=== PATIENT | male | born 1980 | race Caucasian/White ===

== ENCOUNTER 2020-08-04 10:36 | Outpatient (REF) | payer OTHER, SELFPAY | END 2020-08-04 10:37 | disposition home or self-care (01) | LOC: HO.LAB 10:36 | PROVIDERS: PCP Physician Assistant; Visit Provider Internal Medicine | DX: Z20.828 Contact with and (suspected) exposure to other viral communicable diseases (principal) | CPT/HCPCS: 36415; 87635 ==

== ENCOUNTER 2020-10-10 10:22 | Outpatient (REF) | payer OTHER, SELFPAY ==
[2020-10-10 11:30] LABS: MANUAL DIFF FLAG NO
[2020-10-10 11:48] LABS: Basophils Absolute Auto 0.1 X10*3/uL (0.0-0.2); Basophils Percent Auto 0.7 % (0-2); Eosinophils Absolute Auto 0.2 X10*3/uL (0.0-0.4); Eosinophils Percent Auto 2.5 % (0-4); Hemoglobin 15.8 g/dl (14.0-18.0); Imm Gran Abs Auto 0.03 X10*3/uL (0.00-0.03); Imm Gran Pct Auto 0.4 % (0.0-0.4); Lymphocytes Absolute Auto 2.7 X10*3/uL (1.2-4.9); Lymphocytes Percent Auto 36.6 % (20-40); Mean Corpuscular HGB Conc 32.9 g/dl (31.0-36.0); Mean Corpuscular Hemoglobin 30.9 pg (27.0-33.0); Mean Corpuscular Volume 93.9 fL (80-98); Mean Platelet Volume 10.2 fL (9.4-12.4); Monocytes Absolute Auto 0.6 X10*3/uL (0.1-1.2); Monocytes Percent Auto 7.9 % (2-11); Neutrophils Absolute Auto 3.8 X10*3/uL (2.0-8.3); Neutrophils Percent Auto 51.9 % (45-73); Platelet Count 273 X10*3/uL (160-400); Red Blood Count 5.11 X10*6/uL (4.60-5.80); White Blood Count 7.3 X10*3/uL (4.8-10.8)
[2020-10-10 11:53] LABS: Alanine Aminotransferase 107 U/L (0-40); Albumin Level 4.7 g/dL (3.5-5.0); Alkaline Phosphatase 67 U/L (39-117); Anion Gap 12 (12-20); Aspartate Amino Transferase 44 U/L (5-37); Bilirubin Total 1.2 mg/dL (0.0-1.0); Blood Urea Nitrogen 14 mg/dL (9-16); Calcium 9.2 mg/dL (8.4-10.2); Carbon Dioxide 28 mmol/L (22-29); Chloride 105 mmol/L (96-108); Cholesterol 283 mg/dL; Estimated Glomerular Filt Rate > 60; Glucose Fasting 87 mg/dL (60-99); HDL Cholesterol 41 mg/dL; LDL Cholesterol Calculated 218 mg/dl; Sodium 141 mmol/L (135-145); Total Protein 7.5 g/dL (6.5-8.0); Triglycerides 124 mg/dL
[2020-10-10 11:56] LABS: Estimated Average Glucose 108 mg/dL; Hemoglobin A1c % 5.4 %
[2020-10-10 12:15] LABS: TSH reflex Free T4 1.27 mIU/mL (0.32-4.0)
== END 2020-10-10 10:23 | disposition home or self-care (01) ==
LOC: HO.LAB 10:22
PROVIDERS: Absent Provider Physician Assistant; PCP Physician Assistant; Visit Provider Internal Medicine
DX: Z20.828 Contact with and (suspected) exposure to other viral communicable diseases (principal); Z13.220 Encounter for screening for lipoid disorders; E66.09 Other obesity due to excess calories; Z68.33 Body mass index [BMI] 33.0-33.9, adult; Z13.1 Encounter for screening for diabetes mellitus
CPT/HCPCS: 36415; 80053; 80061; 83036; 84443; 85025; C9803; U0003

== ENCOUNTER → 2020-11-02 10:01 | Outpatient (BNVA) | payer OTHER, SELFPAY | PROVIDERS: PCP Physician Assistant; Referring Provider Physician Assistant; Visit Provider Urology | DX: Z76.89 Persons encountering health services in other specified circumstances (principal) ==

== ENCOUNTER → 2020-12-16 10:43 | Outpatient (BNVA) | payer OTHER, SELFPAY | PROVIDERS: PCP Physician Assistant; Visit Provider Urology | DX: Z30.2 Encounter for sterilization (principal) | CPT/HCPCS: 55250 ==

== ENCOUNTER 2021-01-09 08:48 | Outpatient (REF) | payer OTHER, SELFPAY | END 2021-01-09 08:49 | disposition home or self-care (01) | LOC: HO.LAB 08:48 | PROVIDERS: Visit Provider Internal Medicine | DX: Z20.822 Contact with and (suspected) exposure to COVID-19 (principal) | CPT/HCPCS: 36415; C9803; U0003; U0005 ==

== ENCOUNTER → 2021-03-16 15:17 | Outpatient (BNVA) | payer OTHER, SELFPAY | PROVIDERS: PCP Physician Assistant; Visit Provider Urology ==

== ENCOUNTER 2021-10-30 12:10 | Outpatient (REF) | payer OTHER, SELFPAY ==
--- NOTE | ~2021-10-30 | XR_ITS ---
EXAMINATION: XR HAND, RIGHT CLINICAL INFORMATION: Pain in right hand COMPARISON: None TECHNIQUE: PA, lateral, and oblique views of the right hand. FINDINGS: There is a mildly displaced comminuted fracture involving the base of the fourth metacarpal with suggestion of slight callus formation suggesting a subacute etiology. Correlation with physical exam. No acute visible dislocation. Joint spaces and alignment are maintained. Soft tissues are unremarkable. XR/XR hand RT 2V IMPRESSION: Mildly displaced comminuted fracture involving the base of the fourth metacarpal with suggestion of slight callus formation suggesting a subacute etiology. Correlation with physical exam and trauma history.
--- NOTE | ~2021-10-30 | US_ITS ---
EXAMINATION: US ABDOMEN LIMITED CLINICAL INFORMATION: Abnormal levels of other serum enzymes. COMPARISON: Ultrasound abdomen 09/24/2007. CT abdomen and pelvis 06/28/2007. TECHNIQUE: Real-time imaging of the right upper quadrant abdominal viscera. FINDINGS: PANCREAS: Not well visualized due to overlying bowel gas. LIVER: The liver is normal in size. The liver contour is normal. There is diffuse increased liver parenchymal echogenicity, consistent with hepatic steatosis. No focal hepatic lesion. There is no intrahepatic biliary duct dilatation seen. GALLBLADDER: Normal. The gallbladder is physiologically distended without evidence of stones, sludge, polyps, wall thickening or pericholecystic fluid. COMMON BILE DUCT: Normal in caliber measuring 0.4 cm in diameter. RIGHT KIDNEY: There is a 4 mm nonobstructing calculus in the upper pole. There is a 2.8 cm cyst in the midpole. No hydronephrosis. The kidney measures 12.6 cm in maximum dimension. FREE FLUID: None. US/US abdomen limited IMPRESSION: 1. Metastatic steatosis. 2. 4 mm right upper pole nonobstructing calculus. 3. Right upper floor renal cysts, no further follow-up is required.
[2021-10-30 12:55] LABS: Hematocrit 47.3 % (42.0-52.0); Hemoglobin 15.8 g/dl (14.0-18.0); Mean Corpuscular HGB Conc 33.4 g/dl (31.0-36.0); Mean Corpuscular Hemoglobin 31.2 pg (27.0-33.0); Mean Corpuscular Volume 93.3 fL (80.0-98.0); Mean Platelet Volume 9.9 fL (9.4-12.4); Platelet Count 297 X10*3/uL (160-400); Red Blood Count 5.07 X10*6/uL (4.60-5.80); Red Cell Distribution Width 13.2 % (11.0-16.0); White Blood Count 8.1 X10*3/uL (4.8-10.8)
[2021-10-30 13:04] LABS: Estimated Average Glucose 103 mg/dL; Hemoglobin A1c % 5.2 %
[2021-10-30 13:07] LABS: Alanine Aminotransferase 63 U/L (0-40); Albumin Level 4.6 g/dL (3.5-5.0); Alkaline Phosphatase 69 U/L (39-117); Anion Gap 11 (12-20); Aspartate Amino Transferase 28 U/L (5-37); Blood Urea Nitrogen 13 mg/dL (9-16); Carbon Dioxide 30 mmol/L (22-29); Chloride 105 mmol/L (96-108); Cholesterol 262 mg/dL; Estimated Glomerular Filt Rate > 60; Glucose Fasting 87 mg/dL (60-99); HDL Cholesterol 44 mg/dL; LDL Cholesterol Calculated 188 mg/dl; Potassium 4.4 mmol/L (3.3-5.1); Sodium 142 mmol/L (135-145); Total Protein 7.5 g/dL (6.5-8.0); Triglycerides 150 mg/dL
[2021-10-30 13:24] LABS: Syphilis Screen Nonreactive (Nonreactive)
[2021-10-30 13:26] LABS: TSH reflex Free T4 1.34 uIU/mL (0.32-4.0)
[2021-11-01 07:59] LABS: HBS Num1 > 1000.00 mIU/mL (0-7.99); HIV AB/AG Nonreactive (Nonreactive); HIV Num 1 0.06 S/CO (0.00-0.99); ~HepC Num1 0.09 S/CO (0.00-0.79); ~Hepatitis B Surface Antibody REACTIVE (Nonreactive); ~Hepatitis C Antibody Nonreactive (Nonreactive)
[2021-11-01 08:29] LABS: HBc Num1 0.05 S/CO (0.00-0.79); HBsAGNum1 0.18 S/CO (0.00-0.99); Hepatitis B Core Antibody Nonreactive (Nonreactive); Hepatitis B Surface Antigen Negative (Negative)
[2021-11-05 14:21] LABS: HSV 1 IgM IFA Negative (Negative); HSV 2 IgM IFA Negative (Negative)
[2021-11-05 16:05] LABS: Chlamydia Pneumoniae IgA <1:16 titer (<1:16); Chlamydia Pneumoniae IgM <1:10 titer (<1:10); Chlamydia Psittaci IgA <1:16 titer (<1:16); Chlamydia Psittaci IgG <1:64 titer (<1:64); Chlamydia Psittaci IgM <1:10 titer (<1:10); Chlamydia Trachomatis IgA <1:16 titer (<1:16); Chlamydia Trachomatis IgG <1:64 titer (<1:64); Chlamydia Trachomatis IgM <1:10 titer (<1:10)
== END 2021-10-30 12:11 | disposition home or self-care (01) ==
LOC: HO.US 12:10
PROVIDERS: PCP Physician Assistant; Visit Provider Physician Assistant
DX: Z11.4 Encounter for screening for human immunodeficiency virus [HIV] (principal); Z13.1 Encounter for screening for diabetes mellitus; Z11.3 Encounter for screening for infections with a predominantly sexual mode of transmission; R74.8 Abnormal levels of other serum enzymes; M79.641 Pain in right hand; E78.2 Mixed hyperlipidemia
CPT/HCPCS: 36415; 73120; 76705; 80053; 80061; 83036; 84443; 85027; 86631; 86632; 86695; 86696; 86704; 86706; 86780; 86803; 87340; 87389

== ENCOUNTER 2022-03-23 11:01 | Emergency (ER) | payer OTHER, SELFPAY ==
--- NOTE | ~2022-03-23 | CT_ITS ---
EXAMINATION: CT HEAD WITHOUT CONTRAST CLINICAL INFORMATION: Dizziness/headaches/high blood pressure. COMPARISON: None. TECHNIQUE: Contiguous axial imaging was performed from the skull base to vertex without intravenous administration of contrast. This CT examination was performed using dose optimization techniques as appropriate, variously including the following: *Automated exposure control *Adjustment of mA and/or kV according to patient size (this includes techniques or standardized protocols for targeted exams where dose is matched to indication/reason for exam; i.e. extremities or head) *Use of iterative reconstruction technique DLP: 674 mGy-cm. FINDINGS: There is no intracranial hemorrhage, large infarction, or mass lesion. There is no extra-axial collection. The ventricles are normal in size and configuration without evidence of hydrocephalus. Aerated secretions are seen within the left sphenoid sinus. The mastoids are clear. The calvarium is intact. CT/CT head/brain wo con IMPRESSION: No acute intracranial abnormality.
[2022-03-23 11:07] VITALS: BP 155/102; PULSE 63; RESP 16; TEMP 36.6; O2SAT 98; BMI 32.8
[2022-03-23 11:20] LABS: MANUAL DIFF FLAG NO
[2022-03-23 11:24] LABS: Basophils Percent Auto 0.6 % (0-2); Eosinophils Absolute Auto 0.1 X10*3/uL (0.0-0.4); Eosinophils Percent Auto 1.4 % (0-4); Hematocrit 45.3 % (42.0-52.0); Hemoglobin 15.2 g/dl (14.0-18.0); Imm Gran Abs Auto 0.02 X10*3/uL (0.00-0.03); Imm Gran Pct Auto 0.3 % (0.0-0.4); Lymphocytes Absolute Auto 2.1 X10*3/uL (1.2-4.9); Lymphocytes Percent Auto 30.3 % (20-40); Mean Corpuscular HGB Conc 33.6 g/dl (31.0-36.0); Mean Corpuscular Volume 92.3 fL (80.0-98.0); Mean Platelet Volume 9.7 fL (9.4-12.4); Monocytes Absolute Auto 0.6 X10*3/uL (0.1-1.2); Monocytes Percent Auto 7.9 % (2-11); Neutrophils Absolute Auto 4.2 x10*3/uL (2.0-8.3); Neutrophils Percent Auto 59.5 % (45-73); Platelet Count 246 X10*3/uL (160-400); Red Blood Count 4.91 X10*6/uL (4.60-5.80); Red Cell Distribution Width 12.9 % (11.0-16.0)
[2022-03-23 11:39] LABS: Anion Gap 11 (12-20); Blood Urea Nitrogen 12 mg/dL (9-16); COVID-19 Test Negative (Negative); Calcium 9.6 mg/dL (8.4-10.2); Carbon Dioxide 27 mmol/L (22-29); Chloride 107 mmol/L (96-108); Creatinine Clr Calc Pharmacy 125.7; Estimated Glomerular Filt Rate > 60; Glucose Random 113 mg/dL (60-115); IDNOW Serial# 16C4AD1C; IDNOW Serial# 9DD0AD1C; Influenza A Negative (Negative); Influenza B2 Negative (Negative); Sodium 141 mmol/L (135-145)
--- NOTE | 2022-03-23 15:12 | ECG_ITS ---
Test Reason : high bp Blood Pressure : / mmHG Vent. Rate : 066 BPM Atrial Rate : 066 BPM P-R Int : 138 ms QRS Dur : 098 ms QT Int : 402 ms P-R-T Axes : 039 020 026 degrees QTc Int : 421 ms Normal sinus rhythm Normal ECG No previous ECGs available Referred By: Consuelo Red Electronically Signed By:JOSE JOHNSON
--- NOTE | 2022-03-23 16:08 | ED_ITS ---
HPI - Dizziness General Chief Complaint: General Medical Stated Complaint: HBP Time Seen by Provider: 03/23/22 14:43 Source: patient Mode of arrival: ambulatory Limitations: no limitations History of Present Illness HPI Narrative: 41-year-old male with a past medical history of hyperlipidemia and obesity presenting to the ED with complaints of 1 week of lightheadedness/dizziness with a frontal headache and yesterday and today he noticed his blood pressure was 160s/100s therefore he came here for further evaluation treatment. Reports that he is not on any blood pressure medication has never been diagnosed with having elevated blood pressure. He denies any recent falls or head injury, changes in vision, nausea/vomiting, chest pain or shortness of breath, paresthesias, palpitations, dyspnea on exertion, orthopnea, abdominal pain, back pain, rashes, CO2 toxicity, IV drug use, cocaine usage, recent travel or sick contacts, lower extremity edema or calf tenderness or any other symptoms complaints or concerns at this time. Reports that he has a PCP that he can follow-up with. MD elicited complaint: dizziness, lightheadedness and other (elevated Blood pressure ) Onset (ago): week(s) (1) Timing: gradual onset and constant Severity: moderate Description: lightheadedness History of similar symptoms: No Exacerbating factors: nothing Relieving factors: nothing Associated symptoms: other (headaches) Related Data Previous Rx's Medication Instructions Recorded simvastatin 20 mg tablet 20 mg PO DAILY #30 tab 02/05/21 lisinopril 10 mg tablet 10 mg PO DAILY #30 tab 03/23/22 Allergies Allergy/AdvReac Type Severity Reaction Status Date / Time No Known Allergies Allergy Verified 03/23/22 11:09 [No Known Allergies*] Review of Systems Review of Systems: Constitutional : No Fever, No Chills, No Night Sweats, No Fatigue, No Malaise ENT/Mouth : No Ear Pain, No Nasal Congestion, No Sinus Pain, No sore throat, No Rhinorrhea Eyes: No Eye Pain, No Swelling, No Redness, No Foreign Body, No Discharge, No Vision Changes Cardiovascular : No Chest Pain, No SOB, No Dyspnea on Exertion, No Orthopnea, No Palpitations Respiratory : No Cough, No Sputum, No Wheezing, No Dyspnea Gastrointestinal : No Nausea, No Vomiting, No Diarrhea, No Constipation, No abdominal Pain, No Hematochezia, No Melena Genitourinary : No Dysuria, No Urinary Frequency, No Urinary Incontinence, No Urgency, No Flank Pain Musculoskeletal : No joint pain, No Myalgias Skin : No lacerations Neuro : + dizziness/lightheadedness/headache, No Focal weakness, no general weakness, No Numbness, No Paresthesias, No Loss of Consciousness Yes all other systems are reviewed and are negative [facility] Past Medical History Attestation statement: The following information was validated with the patient. Surgical History No pertinent past surgical history Family History Family History Father Stroke Hypercholesteremia Mother Diabetes Heart disease Brother Diabetes Social History Social History Housing: House Alcohol intake: current Alcohol intake frequency: a few times a month Alcohol type: beer Patient Tobacco Use Status: Former Tobacco user Tobacco use type: Cigarette e-Cigarette/Vaping Use: Never Used Second Hand Smoke Exposure: No Advance Directives: No Advance Directives Information Provided: No Current occupational status: employed Current occupation: [employer] Physical Exam Vital Signs: Vital Signs: Last Vital Signs Temp 98 F 03/23/22 11:07 Pulse 63 03/23/22 11:07 Resp 16 03/23/22 11:07 BP 155/102 H 03/23/22 11:07 Pulse Ox 98 03/23/22 11:07 BMI result Body Mass Index 32.8 Vital signs have been reviewed as normal and appeared to be correct. Blood pressure 155/102. Heart rate normal. Respiration rate normal. Temperature normal. Oxygen saturation normal. Appearance: Alert. Oriented X3. No acute distress. Head: Normal external exam. Normocephalic. Atraumatic. Able to rotate head bilaterally. Eyes: PERRLA. EOMI. No nystagmus noted. Conjunctiva and sclera normal. Eyelids normal. Corneal reflex normal. ENT: EAC normal. TM's Normal. Hearing normal. Pharynx normal. Uvula midline. tongue midline. Moist mucous membranes. No trismus noted. No drooling noted. No muffled voice noted. No nystagmus noted. Neck: Normal inspection. Neck supple. FROM. No adenopathy. Trachea midline. Thyroid Normal. No meningeal signs. No neck mass noted. CVS: Normal heart rate and rhythm. Heart sound normal. No murmurs noted. Pulses normal throughout. Respiratory: No respiratory distress. Painless inspiration. Breath sounds normal. No wheezes/rales/rhonchi noted. Chest nontender. No accessory muscle usage noted or decreased air movement noted. Abdomen: Soft and nontender. Bowel sounds normal in all 4 quadrants. No dist ention noted. No organomegaly noted. No visible injury noted. Back: No CVA tenderness. Full range of motion noted. Skin: Skin warm and dry. Normal skin color. Normal skin turgor. No rashes/lesion s/lacerations noted. Extremities: No lower extremity edema. Extremities exhibit normal range of suzi on. Extremities nontender. Able to shrug shoulders bilaterally and keep up against resistance. Neuro: Oriented X 3. No motor deficit. No sensory deficit. Reflexes normal. Moving all extremities. No focal motor deficits. Cranial nerves II-XI intact bilaterally. Facial strength normal. Normal cognition. Speech normal. Gait normal. Strength 5/5 throughout. No pronator drift. No tremor noted. No fasciculations noted. No rigidity noted. Muscle tone normal throughout. No asterixis noted. [id number] test normal. Heel to rick test normal. Tandem gait normal. Does not sway with eyes open. Romberg test negative. Rapid alternating movement upper extremity normal. Rapid alternating movement lower extremity normal. Hand drop from overhead Misses face. NIHSS score 0. Course Course Course Narrative: 11am - 41-year-old male with a past medical history of hyperlipidemia and obesity pre senting to the ED with complaints of 1 week of lightheadedness/dizziness with a frontal headache and yesterday and today he noticed his blood pressure was 160s/100s therefore he came here for further evaluation treatment. Reports that he is not on any blood pressure medication has never been diagnosed with having elevated blood pressure. Labs were obtained while the patient was in triage and all labs are within normal limits. Patient negative for COVID. Patient negative for influenza. EKG normal sinus rhythm with ventricular rate of 66 with a normal LA interval normal QRS duration normal QT/QTC interval. No acute ischemic change are noted. No prior EKGs to compare to at this time. Plan: Therefore I discussed this case with Dr. Campos we will obtain a CT scan of his brain. If negative patient will be discharged home with instructions to follow-up with his PCP and to write down his blood pressure for at least the next 2 weeks on Saturday/Saturday and Fridays and to increase his exercise and make better healthy lifestyle choices/diet and if he does all of this and his blood pressure still elevated than his PCP can decide to put him on blood pressure medication. Patient understands agrees with this plan. Reevaluation(s) Reevaluation #1: I discussed this case with Ant Figueroa his PCP and he recommended starting him on a blood pressure medication and I also discussed this with Dr. Torrez and he is agreeable we will actually start the patient on lisinopril. Patient understands agrees with this plan. Time: 17:01 [facility] - Dizziness Medical Records Attestation: I reviewed the patient's medical records. Lab Data Attestation: I reviewed the patient's lab results. Result diagrams: 03/23/22 11:16 03/23/22 11:16 Labs: Lab Results 03/23/22 03/23/22 03/23/22 Range/Units 11:16 11:16 11:16 WBC 7.0 (4.8-10.8) X10*3/uL RBC 4.91 (4.60-5.80) X10*6/uL Hgb 15.2 (14.0-18.0) g/dl Hct 45.3 (42.0-52.0) % MCV 92.3 (80.0-98.0) fL MCH 31.0 (27.0-33.0) pg MCHC 33.6 (31.0-36.0) g/dl RDW 12.9 (11.0-16.0) % Plt Count 246 (160-400) X10*3/uL MPV 9.7 (9.4-12.4) fL Immature Gran % (Auto) 0.3 (0.0-0.4) % Neut % (Auto) 59.5 (45-73) % Lymph % (Auto) 30.3 (20-40) % Robeson % (Auto) 7.9 (2-11) % Eos % (Auto) 1.4 (0-4) % Baso % (Auto) 0.6 (0-2) % Lymph # (Auto) 2.1 (1.2-4.9) X10*3/uL Robeson # (Auto) 0.6 (0.1-1.2) X10*3/uL Eos # (Auto) 0.1 (0.0-0.4) X10*3/uL Baso # (Auto) 0.0 (0.0-0.2) X10*3/uL Abs Immat Gran (auto) 0.02 (0.00-0.03) X10*3/uL Absolute Neuts (auto) 4.2 (2.0-8.3) x10*3/uL Absolute Nucleated RBC 0.000 (0.0-0.012) X10*3/uL Nucleated RBC % (auto) 0.0 (0.0-0.2) /100WBC Sodium 141 (135-145) mmol/L Potassium 4.0 (3.3-5.1) mmol/L Chloride 107 (96-108) mmol/L Carbon Dioxide 27 (22-29) mmol/L Anion Gap 11 L (12-20) BUN 12 (9-16) mg/dL Creatinine 0.98 (0.5-1.4) mg/dL Estim Creat Clear Calc 125.7 Estimated GFR > 60 Random Glucose 113 (60-115) mg/dL Calcium 9.6 (8.4-10.2) mg/dL COVID-19 (JENNIFER) (Negative) COVID-19 Clin Com Influenza Type A (ANTWON) Negative (Negative) Influenza Type B (ANTWON) Negative (Negative) Influenza A & B Note See Note 03/23/22 Range/Units 11:16 WBC (4.8-10.8) X10*3/uL RBC (4.60-5.80) X10*6/uL Hgb (14.0-18.0) g/dl Hct (42.0-52.0) % MCV (80.0-98.0) fL MCH (27.0-33.0) pg MCHC (31.0-36.0) g/dl RDW (11.0-16.0) % Plt Count (160-400) X10*3/uL MPV (9.4-12.4) fL Immature Gran % (Auto) (0.0-0.4) % Neut % (Auto) (45-73) % Lymph % (Auto) (20-40) % Robeson % (Auto) (2-11) % Eos % (Auto) (0-4) % Baso % (Auto) (0-2) % Lymph # (Auto) (1.2-4.9) X10*3/uL Robeson # (Auto) (0.1-1.2) X10*3/uL Eos # (Auto) (0.0-0.4) X10*3/uL Baso # (Auto) (0.0-0.2) X10*3/uL Abs Immat Gran (auto) (0.00-0.03) X10*3/uL Absolute Neuts (auto) (2.0-8.3) x10*3/uL Absolute Nucleated RBC (0.0-0.012) X10*3/uL Nucleated RBC % (auto) (0.0-0.2) /100WBC Sodium (135-145) mmol/L Potassium (3.3-5.1) mmol/L Chloride (96-108) mmol/L Carbon Dioxide (22-29) mmol/L Anion Gap (12-20) BUN (9-16) mg/dL Creatinine (0.5-1.4) mg/dL Estim Creat Clear Calc Estimated GFR Random Glucose (60-115) mg/dL Calcium (8.4-10.2) mg/dL COVID-19 (JENNIFER) Negative (Negative) COVID-19 Clin Com See Note Influenza Type A (ANTWON) (Negative) Influenza Type B (ANTWON) (Negative) Influenza A & B Note Imaging Data CT scan of brain without contrast: Attestation: I personally reviewed and interpreted this imaging study as follows: Radiologist's impression: FINDINGS: There is no intracranial hemorrhage, large infarction, or mass lesion. There is no extra-axial collection. The ventricles are normal in size and configuration without evidence of hydrocephalus. Aerated secretions are seen within the left sphenoid sinus. The mastoids are clear. The calvarium is intact. CT/CT head/brain wo con IMPRESSION: No acute intracranial abnormality. ECG Data Attestation: I personally reviewed and interpreted this ECG as follows: ECG interpretation date: 03/23/22 ECG interpretation time: 15:14 Interpretation: EKG normal sinus rhythm with ventricular rate of 66 with a normal LA interval normal QRS duration normal QT/QTC interval. No acute ischemic change are noted. No prior EKGs to compare to at this time. Discharge Plan Discharge Clinical Impression: Blood pressure elevated without history of HTN, Dizziness, Headache, Hypertension Patient Disposition: Home, Self-Care Instructions: Heart Healthy Diet (ED), How to Take a Blood Pressure (ED), Hypertension (ED) Additional Instructions: Your labs and your CT scan of your brain and your EKG were all normal. Your blood pressure was 155/102 initially I discussed with you that you should monitor your blood pressure on Saturday/Saturday/Saturday and have a diary and bring it to her PCP although I discussed this with your PCP and I believe he recommended to start you on a blood pressure medication therefore will start trial blood pressure medication although it is still very important that you start a heart healthy diet decreased fatty/greasy or salty foods and increase your water intake and increase your exercise and this should help your blood pressure naturally instead of taking medications. Return if any new or worsening symptoms especially if you develop any chest pain or shortness of breath and follow-up with her primary care provider. Prescriptions: New lisinopril 10 mg tablet 10 mg PO DAILY Qty: 30 0RF No Action simvastatin 20 mg tablet 20 mg PO DAILY Qty: 30 3RF Referrals: Ant Figueroa PA-C [Primary Care Provider] - 2 days (Recheck blood pressure) Stand Alone Forms: Work/School Release Print Language: Paraguayan
[2022-03-23] MEDS: lisinopriL 5 MG TABLET PO (17:37)
== END 2022-03-23 17:43 | disposition home or self-care (01) ==
PROVIDERS: Emergency Provider Internal Medicine; PCP Physician Assistant
DX: I10 Essential (primary) hypertension (principal); R42 Dizziness and giddiness; R51.9 Headache, unspecified; Z20.822 Contact with and (suspected) exposure to COVID-19
CPT/HCPCS: 70450; 80048; 85025; 87502; 87635; 93005; 99282; 99283; 99284

== ENCOUNTER 2023-06-10 14:11 | Outpatient (AMB) | payer OTHER, SELFPAY ==
--- NOTE | 2023-06-10 14:17 | A.OFFPC_ITS ---
Vital Signs 06/10/23 14:19 Height 5 ft 11 in Weight 236 lb BMI 32.9 BP 132/72 Blood Pressure Location Lt brachial Position Sitting Pulse 78 Pulse Source Pulse Oximeter Pulse Oximetry (%) 99 Intake Visit Reasons: Overmedicated-seen at [facility] weeks ago Intake Note: pt is here for ED f/u from [facility], patient states he took around 20 pills and had a seizure and hit his head, had 5 stitches, and then once at the hospital he had another one Grated Cheese Maker Required: No Accompanied by: Self / Same As Patient Allergies No Known Allergies [No Known Allergies*] Allergy (Verified 06/10/23 14:34) Medication List - Last Reconciled 06/10/23 by Ant Figueroa PA-C amlodipine 10 mg PO DAILY escitalopram oxalate (Lexapro) 10 mg PO BEDTIME hydroxyzine HCl 50 mg PO BEDTIME lisinopril 10 mg PO DAILY miscellaneous medical supply (Blood Pressure Cuff) As directed simvastatin 20 mg PO DAILY trazodone 50 mg PO DAILY Tobacco use date assessed: 06/10/23 Dental Screening Dental Screen Date: 06/10/23 Did you have a dental visit in the last 12 months?: Yes Did you have a dental problem in the last 6 months where you did not have access to dental care?: No Was dental information given to patient?: Patient has dentist HPI Overmedicated-seen at [facility] weeks ago HPI0 Details Patient is a 43-year-old male here today for hospital follow-up visit. Patient has a past medical history significant for MDD, anxiety, hyperlipidemia, hypertension. Patient recently admitted to [facility] after suffering a syncopal episode and seizure. He reports to seizure was brought on by taking more than the recommended dose of Wellbutrin. He reports taking 20 pills and 48 hour. . He denies that this was a suicide attempt though he was generally trying to feel better as he has been experiencing more depression and anxiety due to family issues and job stress. Are during his seizure episode he fell injuring his head requiring 5 stitches over his left eyebrow. He was admitted to the psychiatric unit and was started on SSRI therapy and trazodone for sleep. He is now connected with [facility] and now has a mental health therapist and a psychiatrist whom is managing his mental health medications. He reports he feels somewhat better from mental health standpoint, He continues to have some dizziness upon changes in movements and does not feel comfortable to return back to work as he does not feel safe. He will be filing for FMLA. [facility] Surgical History No pertinent past surgical history Family History Father Stroke Hypercholesteremia Mother Diabetes Heart disease Brother Diabetes Social History Housing: House Alcohol intake: current Alcohol intake frequency: a few times a month Alcohol type: beer Patient Tobacco Use Status: Former Tobacco user Tobacco use type: Cigarette e-Cigarette/Vaping Use: Never Used Second Hand Smoke Exposure: No Current occupational status: employed Current occupation: [employer] Cognitive needs: No Hearing needs: No Vision needs: No Questionnaire PHQ-9 Over the last 2 weeks, how often have you been bothered by any of the following problems? 1. Little interest or pleasure in doing things: several days 2. Feeling down, depressed, or hopeless: nearly every day 3. Trouble falling or staying asleep, or sleeping too much: not at all 4. Feeling tired or having little energy: nearly every day 5. Poor appetite or overeating: nearly every day 6. Feeling bad about yourself - or that you are a failure or have let yourself or your family down: several days 7. Trouble concentrating on things, such as reading the newspaper or watching television: nearly every day 8. Moving or speaking so slowly that other people could have noticed. Or the op posite - being so fidgety or restless that you have been moving around a lot more than usual: several days 9. Thoughts that you would be better off or of hurting yourself in some way: not at all Total score: 15 Depression Screening Interpretation: Positive 54849 - PHQ-9 Billing: Yes Source: Developed by Drs. Neville Jones, Kim Alvarado, Daniel Bilsl and colleagues, with an educational wolf from [employer]. Thrive Questionnaire Date Thrive assessed: 06/10/23 I am a: Patient What is your living situation today?: I have a steady place to live Within the past 12 months, did the food you bought not last and you didn't have the money to get more?: Never true Within the past 12 months, did you worry whether your food would run out before you got money to buy more?: Never true Do you have trouble paying for medicines?: No Do you have trouble getting transportation to medical appointments?: No Do you have trouble paying your heating and electricity bill?: No Do you have trouble taking care of your child, family member or friend?: No Do you have trouble with day-to-day activities such as bathing, preparing meals, shopping, managing finances, etc.?: No Are you currently unemployed and looking for a job?: No Are you interested in more education?: No Currently or been in a relationship where the following occur: no concerns reported CAROLANN-7 AMB Questionnaire CAROLANN-7 Date CAROLANN - 7 assessed: 06/10/23 Feeling nervous, anxious, or on edge: 2 = More than half the days Not being able to stop or control worryin = Nearly every day Worrying too much about different things: 3 = Nearly every day Trouble relaxin = Several days Being so restless that it is hard to sit still: 1 = Several days Becoming easily annoyed or irritable: 0 = Not at all Feeling afraid as if something awful might happen: 1 = Several days Total CAROLANN-7 score (0-4 normal; 5-9 mild; 10-14 moderate; 15-21 severe): 11 Source: Developed by Drs. Neville Jones, Kim Alvarado, Daniel iBlls and colleagues, with an educational wolf from [employer]. CAROLANN-7 Assessment Billing CAROLANN-7 Assessment Tool: CAROLANN-7 Assessment 70382 Review of Systems Const Denies headache(s) Eyes Denies loss of vision ENT Reports vertigo, Reports dizziness, Denies headache(s) and Denies sore throat Card Denies chest pain, Denies leg edema and Denies lightheadedness Resp Denies cough, Denies hemoptysis and Denies wheezing GI Denies abdominal pain, Denies melena, Denies constipation, Denies diarrhea and Denies vomiting Denies dysuria, Denies urinary frequency and Denies urinary urgency Musc Denies arthralgias, Denies joint swelling, Denies numbness and Denies tingling Neuro Denies Abnormal speech present, Denies behavioral changes, Reports vertigo, Reports dizziness, Denies headache(s), Denies loss of vision, Denies memory loss, Denies numbness and Denies tingling Psych Reports anxiety, Denies behavioral changes, Reports depression, Denies memory loss and Denies panic attacks Raman/Lymph Denies easy bleeding and Denies easy bruising Aller/Immun Denies wheezing Physical exam (Primary Care) Vital Signs: Last Vital Signs Pulse 78 06/10/23 14:19 BP 132/72 06/10/23 14:19 Pulse Ox 99 06/10/23 14:19 BMI result Body Mass Index 32.9 Tobacco/Smoking Status: Tobacco use Status Tobacco use date assessed 06/10/23 06/10/23 14:20 Patient Tobacco Use Status Former Tobacco user 06/10/23 14:20 Tobacco use type Cigarette 06/10/23 14:20 e-Cigarette/Vaping Use Never Used 06/10/23 14:20 PHQ-9: PHQ-9 Score PHQ-9: Total score 15 06/10/23 14:48 Depression Screening Interpretation: Positive Thrive Assessment: Date of Thrive Assessment Date Thrive assessed 06/10/23 06/10/23 14:20 Currently or been in a relationship where the following occur: no concerns reported Const General: healthy appearing, no acute distress, alert and awake Nutritional Appearance: well nourished Orientation/consciousness: oriented to person, oriented to place and oriented to time HENMT Ears: TM's normal bilaterally General nose exam: Normal nasal mucous membranes and turbinates present Face images: 1. WELL-HEALED LACERATION ABOVE LEFT EYEBROW Eyes Conjunctivae: conjunctivae normal Sclerae: sclerae normal Pupils: Equal, round and reactive pupils present Neck Neck: Yes no lymphadenopathy and Yes no JVD Thyroid: Thyroid normal Carotids: no bruits Resp Effort & Inspection: normal respiratory effort and not tachypneic Auscultation: no crackles, no rales, no rhonchi and no wheezes Cardio Rate: regular rate Rhythm: regular rhythm Heart sounds: no murmurs and normal S1 and S2 GI Palpation (GI): Soft to palpation, nontender, no hepatomegaly and no splenomegaly Auscultation: normal bowel sounds Skin General skin exam: no rashes or lesions noted and dry skin Neuro General: oriented to person, oriented to place and oriented to time Cranial nerves: Yes Equal, round and reactive pupils present Speech: No Abnormal speech present Gait exam (Neuro): Normal gait present Motor exam (neuro): no tremor noted Extrem Right upper extremity: full ROM Left upper extremity: full ROM Right lower extremity: full ROM; no edema Left lower extremity: full ROM; no edema Psych Mental Status: mental status grossly normal Speech and movement: Normal speech and movement present Affect: normal affect Attitude: cooperative Thought process: Normal thought process present Assessment and Plan Assessment & Plan (1) MDD (major depressive disorder), recurrent episode, moderate: Code(s): F33.1 - Major depressive disorder, recurrent, moderate Plan: Now followed by a mental health therapist and a psychiatrist whom is managing mental health medication at this time. He feels a bit better from a mental health point of view. (2) Post concussion syndrome: Code(s): F07.81 - Postconcussional syndrome Plan: Patient suffered a traumatic head injury during his seizure episode. Needed 5 stitches above left eyebrow. Continues to have some dizziness and avoidance loud noises ? Concussion. Advised on cognitive rest. (3) CAROLANN (generalized anxiety disorder): Code(s): F41.1 - Generalized anxiety disorder Plan: Patient's CAROLANN-7 score positive for moderate anxiety which has been existing condition for him. Has been started on SSRI therapy and establish care with a mental health therapist. (4) HTN (hypertension): Code(s): I10 - Essential (primary) hypertension Qualifiers: Hypertension type: primary hypertension Qualified Code(s): I10 - Essential (primary) hypertension Plan: Has been started on amlodipine 10 mg. Blood pressure today in office acceptable. (5) Vertigo: Code(s): R42 - Dizziness and giddiness Plan: Patient will likely benefit from vestibular therapy due to his BPPV symptoms. Considered the use of meclizine though already on multiple medications at this time will hold off. Orders: Orders PT Evaluation and Treatment 06/10/23 R42 - Dizziness and giddiness Comprehensive Paia. Panel Fast 06/10/23 E78.2 - Mixed hyperlipidemia Lipid Panel 06/10/23 E78.2 - Mixed hyperlipidemia Coding Level of Care Code Est Pt Level 4 (71159) Diagnoses MDD (major depressive disorder), recurrent episode, moderate F33.1 Post concussion syndrome F07.81 CAROLANN (generalized anxiety disorder) F41.1 HTN (hypertension) I10 Hypertension type: primary hypertension Vertigo R42 Additional Codes CAROLANN-7 Assessment Billing - CAROLANN-7 Assessment Tool: CAROLANN-7 Assessment 68205 ([id number])
[2023-06-10 14:19] VITALS: BP 132/72; PULSE 78; O2SAT 99; BMI 32.9
== END 2023-06-10 15:21 | disposition home or self-care (01) ==
PROVIDERS: PCP Physician Assistant; Visit Provider Physician Assistant
DX: I10 Essential (primary) hypertension (principal); F33.1 Major depressive disorder, recurrent, moderate; F07.81 Postconcussional syndrome; F41.1 Generalized anxiety disorder; R42 Dizziness and giddiness
CPT/HCPCS: 99214

== ENCOUNTER 2023-06-11 11:14 | Outpatient (REF) | payer OTHER, SELFPAY ==
[2023-06-11 13:18] LABS: Alanine Aminotransferase 38 U/L (0-40); Albumin Level 4.3 g/dL (3.5-5.0); Alkaline Phosphatase 73 U/L (39-117); Anion Gap 11 (12-20); Aspartate Amino Transferase 18 U/L (5-37); Blood Urea Nitrogen 11 mg/dL (9-16); Calcium 9.1 mg/dL (8.4-10.2); Carbon Dioxide 25 mmol/L (22-29); Chloride 108 mmol/L (96-108); Cholesterol 311 mg/dL; Estimated Glomerular Filt Rate > 60; Glucose Fasting 86 mg/dL (60-99); HDL Cholesterol 44 mg/dL; LDL Cholesterol Calculated 235 mg/dl; Potassium 3.6 mmol/L (3.3-5.1); Sodium 140 mmol/L (135-145); Total Protein 7.3 g/dL (6.5-8.0); Triglycerides 160 mg/dL
== END 2023-06-11 11:15 | disposition home or self-care (01) ==
LOC: HO.LAB 11:14
PROVIDERS: PCP Physician Assistant; Visit Provider Physician Assistant
DX: E78.2 Mixed hyperlipidemia (principal)
CPT/HCPCS: 36415; 80053; 80061

== ENCOUNTER 2023-07-01 15:00 | Outpatient (RCR) | payer SELFPAY ==
[2023-06-24 11:09] VITALS: BP 141/90; PULSE 73
--- NOTE | 2023-06-25 17:46 | MHC.PT.EP ---
[facility] [place] [facility] [place] [facility] [place] [facility] [address] Dennis Albert [address] [phone] F: [phone] F: [phone] F: [phone] F: [phone] Physical Therapy Plan of Care Date of Evaluation: Date of Surgery: Diagnosis: Unsteadiness on feet Benign paraoxysmal vertigo, unspecified ear Assessment: Pt is a pleasant 43yo M who presents to PT with reports of dizziness and unsteadiness after having a seizure and falling down the stairs in May. Upon PT assessment, pt tested positive for R posterior canal benign paraoxsymal positional vertigo (BPPV). He was negative for anterior and horizontal canals B. Due to his symptoms, he is limited functionally by prolonged standing and walking, rolling in bed, getting in/out of bed, and laying flat. He is a good candidate for skilled PT in order to treat current impairments to facilitate return to PLOF. He is recommended to be seen 2x/week for 4 weeks and will be reassessed at that time. Frequency and Duration: The patient will be seen 2x/week for 4 weeks Short Term Goals: Pt will successfully perform supine to sit transfer without dizziness or instability Pt will ambulate >200' on level surfaces without dizziness or instability [employer] Goals: Pt will perform all functional transfers without dizziness or instability to decrease risk of falls Pt will independently ambulate without AD with head turns safely to assist with safety during grocery shopping Pt will ambulate > 300 on even or uneven surfaces without dizziness or instability Treatment Plan: Modalities to reduce pain, spasms and effusion. Manual therapy to restore motion and function. Therapeutic exercise to improve strength and flexibility. Neuromuscular re-education for posture and balance. Therapeutic activities to return to functional activities of daily living. Electronically signed by: Olga Almanza, PT, DPT Please sign and return to therapist. Thank you for your referral.
--- NOTE | 2023-07-11 14:35 | MHC.PT.DC ---
[facility] [place] Office [place] Office [place] Office [address] Dennis Albert [address] [phone] F: [phone] F: [phone] F: [phone] F: [phone] Physical Therapy Discharge Report Diagnosis: Unsteadiness on feet Benign paraoxysmal vertigo, unspecified ear Date of Surgery: Date of Evaluation: 06/24/23 Date of Discharge: 07/11/23 Treatments to Date: 2 Cancellations to Date: 1 No Shows to Date: 3 Discharge Status: Visit Non-compliance Discharge Summary: Pt was seen for PT from 06/24/23-07/01/23. He had 1 cancellation and 3 no-show appointments since SOC. He is being D/C from skilled PT per [facility] attendance policy and visit non-compliance. Pt current level of function unknown at this time. Electronically signed by: Olga Almanza, PT, DPT Please sign and return to therapist. Thank you for your referral.
== END 2023-07-11 14:35 | disposition home or self-care (01) ==
LOC: HO.PT 15:00
PROVIDERS: PCP Physician Assistant; Visit Provider Physician Assistant
DX: R26.81 Unsteadiness on feet (principal); H81.10 Benign paroxysmal vertigo, unspecified ear
CPT/HCPCS: 97110; 97112; 97162

== ENCOUNTER 2023-12-30 10:32 | Outpatient (AMB) | payer OTHER, SELFPAY ==
[2023-12-30 11:23] VITALS: BP 144/102; PULSE 80; O2SAT 98; BMI 35.2
--- NOTE | 2023-12-30 11:23 | A.OFFPC_ITS ---
Vital Signs 12/30/23 11:23 Height 5 ft 11 in Weight 252 lb 8 oz BMI 35.2 BP 144/102 H Blood Pressure Location Lt brachial Position Sitting Pulse 80 Pulse Source Pulse Oximeter Pulse Oximetry (%) 98 Oxygen Delivery Method Room Air Intake Visit Reasons: annual PE Intake Note: Patient is here today for a physical and ringing on right ear for the past month. 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 Accompanied by: Self / Same As Patient Allergies No Known Allergies [No Known Allergies*] Allergy (Verified 12/30/23 11:41) Medication List - Last Reconciled 12/30/23 by Ant Figueroa PA-C amlodipine 10 mg PO DAILY escitalopram oxalate (Lexapro) 10 mg PO BEDTIME hydroxyzine HCl 50 mg PO BEDTIME lisinopril 10 mg PO DAILY miscellaneous medical supply (Blood Pressure Cuff) As directed simvastatin 20 mg PO DAILY trazodone 50 mg PO DAILY Tobacco use date assessed: 12/30/23 Dental Screening Dental Screen Date: 12/30/23 Did you have a dental visit in the last 12 months?: Yes Did you have a dental problem in the last 6 months where you did not have access to dental care?: No Was dental information given to patient?: Patient has dentist HPI annual PE HPI Details Patient is a 43-year-old male here today for routine annual physical. Patient has a past medical history significant for MDD, anxiety, hyperlipidemia, hypertension. -Concern- > reports suffering with right -sided tinnitus over the last month and a half. He has tried [id number]-hce-jsgrode meds without relief. He has tried jaw massages and ear manipulation though has not been helpful. .. Hypertension: Blood pressure elevated today in office. Has gained significant amount of weight since last office visit likely secondary to his psychiatric medication. PLAN: Will add on hydrochlorothiazide for better blood pressure control .. Major depressive disorder: Continues on SSRI therapy, he is seeing a mental health therapist and a psychiatrist. He generally feels well from a mental health point of view. .. Hyperlipidemia: Most recent lipid panel showing very elevated total cholesterol and LDL. Has been on simvastatin 20 mg. Advised to get fasting labs done JANIS. Vaccines: Up-to-date with tetanus, COVID vaccine, declines flu vaccine [facility] Surgical History No pertinent past surgical history Family History Father Stroke Hypercholesteremia Mother Diabetes Heart disease Brother Diabetes Social History (Updated 12/30/23 @ 11:45 by Ant Figueroa PA-C) Housing: House Alcohol intake: former Year quit: 2022 Patient Tobacco Use Status: Former Tobacco user Tobacco use type: Cigarette e-Cigarette/Vaping Use: Never Used Second Hand Smoke Exposure: No Current occupational status: employed Cognitive needs: No Hearing needs: No Vision needs: No Questionnaire PHQ-9 Over the last 2 weeks, how often have you been bothered by any of the following problems? 39200 - PHQ-9 Billing: Patient declined-do not bill Source: Developed by Drs. Neville Jones, Kim Alvarado, Daniel Bills and colleagues, with an educational wolf from [employer]. Thrive Questionnaire Date Thrive assessed: 12/30/23 I am a: Patient What is your living situation today?: I have a steady place to live Within the past 12 months, did the food you bought not last and you didn't have the money to get more?: Never true Within the past 12 months, did you worry whether your food would run out before you got money to buy more?: Never true Do you have trouble paying for medicines?: No Do you have trouble getting transportation to medical appointments?: No Do you have trouble paying your heating and electricity bill?: No Do you have trouble taking care of your child, family member or friend?: No Do you have trouble with day-to-day activities such as bathing, preparing meals, shopping, managing finances, etc.?: No Are you currently unemployed and looking for a job?: No Are you interested in more education?: No Please select the resources that you would like help with: None Currently or been in a relationship where the following occur: no concerns reported THRIVE Score: 0 AUDIT C Alcohol Use Questionnaire (AUDIT-C) 1. How often do you have a drink containing alcohol?: Never 3. How often do you have six or more drinks on one occasion?: Never Total Score: 0 CAROLANN-7 AMB Questionnaire CAROLANN-7 Date CAROLANN - 7 assessed: 06/10/23 Feeling nervous, anxious, or on edge: 0 = Not at all Not being able to stop or control worryin = Not at all Worrying too much about different things: 0 = Not at all Trouble relaxin = Not at all Being so restless that it is hard to sit still: 0 = Not at all Becoming easily annoyed or irritable: 0 = Not at all Feeling afraid as if something awful might happen: 0 = Not at all Total CAROLANN-7 score (0-4 normal; 5-9 mild; 10-14 moderate; 15-21 severe): 0 Source: Developed by Drs. Neville Jones, Kim Alvarado, Daniel Bills and colleagues, with an educational wolf from [employer]. CAROLANN-7 Assessment Billing CAROLANN-7 Assessment Tool: pt declined-do not bill Review of Systems Const Denies body aches, Denies chills, Denies excessive sweating, Denies fatigue, Denies fever(s) and Denies headache(s) Eyes Denies blurry vision ENT Denies dysphagia, Denies vertigo, Denies dizziness, Denies headache(s), Denies hearing loss and Denies tinnitus Card Denies chest pain, Denies chest pain with activity, Denies syncope, Denies irregular heart rhythm and Denies dyspnea Resp Denies chest congestion, Denies cough, Denies hemoptysis, Denies dyspnea and Denies wheezing GI Denies abdominal pain, Denies melena, Denies hematochezia, Denies coffee ground emesis, Denies dysphagia, Denies diarrhea, Denies nausea and Denies vomiting Denies difficulty urinating, Denies dysuria, Denies urinary frequency, Denies urinary hesitancy and Denies urinary urgency Musc Denies arthralgias, Denies limited range of motion, Denies muscle cramps and Denies muscle weakness Skin/Breast Denies rash and Denies skin ulcer Neuro Denies Abnormal speech present, Denies confusion, Denies vertigo, Denies dizziness, Denies syncope, Denies headache(s), Denies memory loss and Denies seizure-like activity Psych Denies anxiety, Denies confusion, Denies depression, Denies memory loss, Denies panic attacks and Denies paranoia Endo Denies excessive sweating, Denies fatigue, Denies flushing, Denies polydipsia and Denies polyuria Aller/Immun Denies wheezing Physical exam (Primary Care) Vital Signs: Last Vital Signs Pulse 80 12/30/23 11:23 BP 144/102 H 12/30/23 11:23 Pulse Ox 98 12/30/23 11:23 Oxygen Delivery Method Room Air 12/30/23 11:23 BMI result Body Mass Index 35.2 Tobacco/Smoking Status: Tobacco use Status Tobacco use date assessed 12/30/23 12/30/23 11:30 Patient Tobacco Use Status Former Tobacco user 12/30/23 11:45 Tobacco use type Cigarette 12/30/23 11:45 e-Cigarette/Vaping Use Never Used 12/30/23 11:45 Thrive Assessment: Date of Thrive Assessment Date Thrive assessed 12/30/23 12/30/23 11:30 Currently or been in a relationship where the following occur: no concerns reported Const General: cooperative, comfortable, no acute distress, alert and awake; No confusion Orientation/consciousness: oriented to person, oriented to place, patient oriented x3 and No confusion HENMT Head: Yes normocephalic Ears: external ears normal and TM's normal bilaterally Face and sinus: No sinus tenderness Mouth: Normal oral and palatal mucosa present and tongue normal Teeth and gingiva: dentition normal and gingiva normal Throat: Yes posterior oropharynx normal, Yes tonsils normal and Yes uvula midline Eyes Conjunctivae: conjunctivae normal Sclerae: sclerae normal Pupils: Equal, round and reactive pupils present EOM: EOMs intact bilaterally Direct Ophthalmoscopy: No no photophobia Neck Neck: Yes no lymphadenopathy, No tender and Yes no JVD Thyroid: Thyroid normal Carotids: no bruits Chest Chest palpation & inspection: no tenderness Resp Effort & Inspection: normal respiratory effort, no audible wheezes, not labored and no stridor Auscultation: no crackles, no rales, no rhonchi and no wheezes Cardio Jugular venous distension: no JVD Rate: regular rate, not bradycardic and not tachycardic Rhythm: regular rhythm Bruits: no carotid bruits Peripheral pulses: Peripheral pulses 2+ throughout GI Inspection: Yes normal to inspection, No abdominal wall ecchymosis and No visible herniation Palpation (GI): Soft to palpation, nontender, no guarding, not rigid and No hepatosplenomegaly present Auscultation: normoactive bowel sounds General: Yes no CVA tenderness Back/Spine/Pelvis Back: no CVA tenderness and No back tenderness Cervical Spine: cervical ROM normal Thoracic/Lumbar Spine: thoracic and lumbar spine normal to inspection, straight leg raise negative bilaterally, No thoraco-lumbar ROM limited and No lumbar spinal tenderness Skin Lesions: no lesions Rashes: no rashes Wounds: no wounds Neuro General: oriented to person, oriented to place, patient oriented x3, CN's II-XI intact bilaterally and No confusion Cranial nerves: Yes Equal, round and reactive pupils present and Yes Normal accommodation reflex present Cognition (Neuro): normal cognition Speech: No Abnormal speech present Gait exam (Neuro): Normal gait present Motor exam (neuro): 5/5 motor strength present throughout Extrem Right upper extremity: full ROM; no cyanosis Left upper extremity: full ROM; no cyanosis Right lower extremity: no edema Left lower extremity: no edema Psych Appearance: grossly normal Mental Status: mental status grossly normal Affect: normal affect Attitude: cooperative Thought process: Normal thought process present Assessment and Plan Assessment & Plan (1) Annual physical exam: Code(s): Z00.00 - Encounter for general adult medical examination without abnormal findings (2) MDD (major depressive disorder), recurrent episode, moderate: Code(s): F33.1 - Major depressive disorder, recurrent, moderate Plan: Patient continues to speak with a mental health therapist which has been effective. Continues on SSRI therapy which has been effective. (3) CAROLANN (generalized anxiety disorder): Code(s): F41.1 - Generalized anxiety disorder Plan: Again patient is speaking with a mental health therapist in a continues on SSRI therapy. (4) HLD (hyperlipidemia): Code(s): E78.5 - Hyperlipidemia, unspecified Qualifiers: Hyperlipidemia type: mixed hyperlipidemia Qualified Code(s): E78.2 - Mixed hyperlipidemia Plan: Patient's most recent lipid panel showing very elevated total cholesterol and LDL. Has been started on statin therapy and denies any side effects. Will recheck fasting lipids with goal LDL to be below 160 (5) Obese: Code(s): E66.9 - Obesity, unspecified Qualifiers: Body mass index: BMI 33.0-33.9 Obesity classification: adult class 1 (BMI 30 - 34.9) Obesity type: due to excess calories Serious obesity comorbidity presence: without serious comorbidity Qualified Code(s): E66.09 - Other obesity due to excess calories; Z68.33 - Body mass index [BMI] 33.0-33.9, adult Plan: Patient does understand his BMI is over 30 will work on being more physically active and adapting to better eating habits to reduce his weight. (6) Tinnitus of right ear: Code(s): H93.11 - Tinnitus, right ear Plan: Reports a month and a half of right-sided tinnitus. Has tried massage is [id number] medications etc. without much relief. He does report white noise is helpful. Physical exam today benign of the external canal and tympanic membrane. Will send for hearing exam to evaluate for sensorineural hearing loss. Orders: Orders Lipid Panel Today E78.2 - Mixed hyperlipidemia Microalbumin, Random (w Creat) Today I10 - Essential (primary) hypertension Comprehensive [place]. Panel Fast Today I10 - Essential (primary) hypertension Referrals Speech and Hearing Referral H93.11 - Tinnitus, right ear Medications: New lisinopril-hydrochlorothiazide 10-12.5 mg 1 tab PO DAILY 90 days 90 tabs 1RF I10 - Essential (primary) hypertension On Hold lisinopril Hold Comment: Doctor's Order 10 mg PO DAILY 90 tabs 1RF HTN Coding Level of Care Code Est Pt Prev Care 40-64y(61811) Diagnoses Annual physical exam Z00.00 MDD (major depressive disorder), recurrent episode, moderate F33.1 CAROLANN (generalized anxiety disorder) F41.1 Mixed hyperlipidemia E78.2 Hyperlipidemia type: mixed hyperlipidemia Class 1 obesity due to excess calories without serious comorbidity with body mass index (BMI) of 33.0 to 33.9 in adult E66.09; Z68.33 Body mass index: BMI 33.0-33.9 Obesity classification: adult class 1 (BMI 30 - 34.9) Obesity type: due to excess calories Serious obesity comorbidity presence: without serious comorbidity Tinnitus of right ear H93.11
== END 2023-12-30 12:43 | disposition home or self-care (01) ==
PROVIDERS: PCP Physician Assistant; Visit Provider Physician Assistant
DX: Z00.00 Encounter for general adult medical examination without abnormal findings (principal); F33.1 Major depressive disorder, recurrent, moderate; F41.1 Generalized anxiety disorder; Z68.33 Body mass index [BMI] 33.0-33.9, adult; E78.2 Mixed hyperlipidemia; E66.09 Other obesity due to excess calories; H93.11 Tinnitus, right ear; I10 Essential (primary) hypertension
CPT/HCPCS: 99396

== ENCOUNTER 2024-01-08 12:43 | Outpatient (REF) | payer OTHER, SELFPAY | END 2024-01-08 12:44 | disposition home or self-care (01) | LOC: HO.SH 12:43 | PROVIDERS: Visit Provider Physician Assistant | DX: H93.11 Tinnitus, right ear (principal); H90.3 Sensorineural hearing loss, bilateral | CPT/HCPCS: 92557; 92567; 92625 ==

== ENCOUNTER 2024-01-08 14:06 | Outpatient (REF) | payer OTHER, SELFPAY ==
[2024-01-08 16:03] LABS: Alanine Aminotransferase 67 U/L (0-40); Albumin Level 4.5 g/dL (3.5-5.0); Alkaline Phosphatase 78 U/L (39-117); Anion Gap 11 (12-20); Aspartate Amino Transferase 28 U/L (5-37); Blood Urea Nitrogen 11 mg/dL (9-16); Calcium 9.5 mg/dL (8.4-10.2); Carbon Dioxide 30 mmol/L (22-29); Chloride 105 mmol/L (96-108); Cholesterol 252 mg/dL (<200); Estimated Glomerular Filt Rate > 60; Glucose Fasting 87 mg/dL (60-99); HDL Cholesterol 43 mg/dL (>40); LDL Cholesterol Calculated 178 mg/dL (<100); Potassium 3.8 mmol/L (3.3-5.1); Sodium 142 mmol/L (135-145); Total Protein 7.8 g/dL (6.5-8.0); Triglycerides 155 mg/dL (<150)
[2024-01-08 16:08] LABS: Microalbum/Creatinine Ratio Ur 13.8 ug/mg cr (<30)
== END 2024-01-08 14:07 | disposition home or self-care (01) ==
LOC: HO.LAB 14:06
PROVIDERS: PCP Physician Assistant; Visit Provider Physician Assistant
DX: I10 Essential (primary) hypertension (principal); E78.2 Mixed hyperlipidemia
CPT/HCPCS: 36415; 80053; 80061; 82043; 82570

== ENCOUNTER 2025-01-07 16:02 | Outpatient (AMB) | payer OTHER, SELFPAY ==
--- NOTE | 2025-01-07 16:05 | A.OFFPC_ITS ---
Vital Signs 01/07/25 16:07 Height 5 ft 11 in Weight 246 lb BMI 34.3 BP 160/110 H Blood Pressure Location Lt brachial Position Sitting Pulse 85 Pulse Source Pulse Oximeter Pulse Oximetry (%) 96 Oxygen Delivery Method Room Air Intake Visit Reasons: annual exam Intake Note: Patient here for an annual exam Document Control Manager Required: No Accompanied by: Self / Same As Patient Allergies No Known Allergies [No Known Allergies*] Allergy (Verified 01/07/25 16:18) Medication List - Last Reconciled 01/07/25 by Ant Figueroa PA-C amlodipine 10 mg PO DAILY hydroxyzine HCl 50 mg PO BEDTIME lisinopril 10 mg PO DAILY lisinopril-hydrochlorothiazide 10-12.5 mg 1 tab PO DAILY 90 days miscellaneous medical supply (Blood Pressure Cuff) As directed simvastatin 40 mg PO DAILY 90 days tamsulosin 0.4 mg PO DAILY 15 days tramadol 50 mg PO BID PRN 4 days trazodone 50 mg PO DAILY Tobacco use date assessed: 01/07/25 Dental Screening Dental Screen Date: 01/07/25 Did you have a dental visit in the last 12 months?: Yes Did you have a dental problem in the last 6 months where you did not have access to dental care?: No Was dental information given to patient?: Patient has dentist HPI annual exam HPI Details Patient is a 44-year-old male here today for routine annual physical. Patient has a past medical history significant for MDD, anxiety, hyperlipidemia, hypertension. -Concern- > Nephrolithiasis -- Currently having flank pain. Patient has a history of nephrolithiasis. He was recently seen at an a local ER was given a CT scan which did confirm his kidney stones. .. Hypertension: Blood pressure elevated today in office. He reports he has not been regularly taking his blood pressure medication PLAN: Will restart blood pressure medication and monitor blood pressure at home with goal blood pressure to be below 140/90 .. Major depressive disorder: Continues on SSRI therapy, he is seeing a mental health therapist and a psychiatrist. He generally feels well from a mental health point of view. .. Hyperlipidemia: Most recent lipid panel showing very elevated total cholesterol and LDL. He has not been taking his cholesterol medication. Vaccines: Up-to-date with tetanus, COVID vaccine, declines flu vaccine [facility] Surgical History No pertinent past surgical history Family History Father Stroke Hypercholesteremia Mother Diabetes Heart disease Brother Diabetes Social History Housing: House Alcohol intake: former Year quit: 2022 Patient Tobacco Use Status: Former Tobacco user Tobacco use type: Cigarette e-Cigarette/Vaping Use: Currently Using Second Hand Smoke Exposure: No service: No Current occupational status: employed Cognitive needs: No Hearing needs: No Vision needs: Yes Questionnaire PHQ-9 Over the last 2 weeks, how often have you been bothered by any of the following problems? 1. Little interest or pleasure in doing things: not at all 2. Feeling down, depressed, or hopeless: not at all 3. Trouble falling or staying asleep, or sleeping too much: several days 4. Feeling tired or having little energy: several days 5. Poor appetite or overeating: not at all 6. Feeling bad about yourself - or that you are a failure or have let yourself or your family down: not at all 7. Trouble concentrating on things, such as reading the newspaper or watching television: not at all 8. Moving or speaking so slowly that other people could have noticed. Or the opposite - being so fidgety or restless that you have been moving around a lot more than usual: not at all 9. Thoughts that you would be better off or of hurting yourself in some way: not at all Total score: 2 Depression Screening Interpretation: Negative Depression Screening Done: Yes 12758 - PHQ-9 Billing: Yes Source: Developed by Drs. Neville Jones, Kim Alvarado, Daniel Bills and colleagues, with an educational wolf from [employer]. Thrive Questionnaire Date Thrive assessed: 01/07/25 I am a: Patient What is your living situation today?: I have a steady place to live Within the past 12 months, did the food you bought not last and you didn't have the money to get more?: Often true Within the past 12 months, did you worry whether your food would run out before you got money to buy more?: Never true Do you have trouble paying for medicines?: No Do you have trouble getting transportation to medical appointments?: No Do you have trouble paying your heating and electricity bill?: No Do you have trouble taking care of your child, family member or friend?: No Do you have trouble with day-to-day activities such as bathing, preparing meals, shopping, managing finances, etc.?: No Are you currently unemployed and looking for a job?: No Are you interested in more education?: No Please select the resources that you would like help with: None Currently or been in a relationship where the following occur: No concerns reported THRIVE Score: 1 AUDIT C Alcohol Use Questionnaire (AUDIT-C) 1. How often do you have a drink containing alcohol?: Never Total Score: 0 CAROLANN-7 AMB Questionnaire CAROLANN-7 Date CAROLANN - 7 assessed: 01/07/25 Feeling nervous, anxious, or on edge: 1 = Several days Not being able to stop or control worryin = Not at all Worrying too much about different things: 1 = Several days Trouble relaxin = Not at all Being so restless that it is hard to sit still: 1 = Several days Becoming easily annoyed or irritable: 0 = Not at all Feeling afraid as if something awful might happen: 0 = Not at all Total CAROLANN-7 score (0-4 normal; 5-9 mild; 10-14 moderate; 15-21 severe): 3 Source: Developed by Drs. Neville Jones, Kim Alvarado, Daniel Bills and colleagues, with an educational wolf from [employer]. CAROLANN-7 Assessment Billing CAROLANN-7 Assessment Tool: CAROLANN-7 Assessment 70552 Review of Systems Const Denies body aches, Denies chills, Denies excessive sweating, Denies fatigue, Denies fever(s) and Denies headache(s) Eyes Denies blurry vision ENT Denies dysphagia, Denies vertigo, Denies dizziness, Denies headache(s), Denies hearing loss and Denies tinnitus Card Denies chest pain, Denies chest pain with activity, Denies syncope, Denies irregular heart rhythm and Denies dyspnea Resp Denies chest congestion, Denies cough, Denies hemoptysis, Denies dyspnea and Denies wheezing GI Denies abdominal pain, Denies melena, Denies hematochezia, Denies coffee ground emesis, Denies dysphagia, Denies diarrhea, Denies nausea and Denies vomiting Denies difficulty urinating, Denies dysuria, Denies urinary frequency, Denies urinary hesitancy and Denies urinary urgency Musc Denies arthralgias, Denies limited range of motion, Denies muscle cramps and Denies muscle weakness Skin/Breast Denies rash and Denies skin ulcer Neuro Denies Abnormal speech present, Denies confusion, Denies vertigo, Denies dizziness, Denies syncope, Denies headache(s), Denies memory loss and Denies seizure-like activity Psych Denies anxiety, Denies confusion, Denies depression, Denies memory loss, Denies panic attacks and Denies paranoia Endo Denies excessive sweating, Denies fatigue, Denies flushing, Denies polydipsia and Denies polyuria Aller/Immun Denies wheezing Physical exam (Primary Care) Vital Signs: Last Vital Signs Pulse 85 01/07/25 16:07 BP 160/110 H 01/07/25 16:07 Pulse Ox 96 01/07/25 16:07 Oxygen Delivery Method Room Air 01/07/25 16:07 BMI result Body Mass Index 34.3 BMI Assessment/Plan discussion: High BMI High, discussed plan: lifestyle, weight reduction, dietary and physical activity Tobacco/Smoking Status: Tobacco use Status Tobacco use date assessed 01/07/25 01/07/25 16:13 Patient Tobacco Use Status Former Tobacco user 01/07/25 16:13 Tobacco use type Cigarette 01/07/25 16:13 e-Cigarette/Vaping Use Currently Using 01/07/25 16:13 PHQ-9: PHQ-9 Score PHQ-9: Total score 2 01/07/25 16:20 Depression Screening Interpretation: Negative Thrive Assessment: Date of Thrive Assessment Date Thrive assessed 01/07/25 01/07/25 16:13 Currently or been in a relationship where the following occur: No concerns reported Const General: cooperative, comfortable, no acute distress, alert and awake; No confusion Orientation/consciousness: oriented to person, oriented to place, patient oriented x3 and No confusion HENMT Head: Yes normocephalic Ears: external ears normal and TM's normal bilaterally Face and sinus: No sinus tenderness Mouth: Normal oral and palatal mucosa present and tongue normal Teeth and gingiva: dentition normal and gingiva normal Throat: Yes posterior oropharynx normal, Yes tonsils normal and Yes uvula midline Eyes Conjunctivae: conjunctivae normal Sclerae: sclerae normal Pupils: Equal, round and reactive pupils present EOM: EOMs intact bilaterally Direct Ophthalmoscopy: No no photophobia Neck Neck: Yes no lymphadenopathy, No tender and Yes no JVD Thyroid: Thyroid normal Carotids: no bruits Chest Chest palpation & inspection: no tenderness Resp Effort & Inspection: normal respiratory effort, no audible wheezes, not labored and no stridor Auscultation: no crackles, no rales, no rhonchi and no wheezes Cardio Jugular venous distension: no JVD Rate: regular rate, not bradycardic and not tachycardic Rhythm: regular rhythm Bruits: no carotid bruits Peripheral pulses: Peripheral pulses 2+ throughout GI Inspection: Yes normal to inspection, No abdominal wall ecchymosis and No visible herniation Palpation (GI): Soft to palpation, nontender, no guarding, not rigid and No hepatosplenomegaly present Auscultation: normoactive bowel sounds General: Yes no CVA tenderness Back/Spine/Pelvis Back: no CVA tenderness and No back tenderness Cervical Spine: cervical ROM normal Thoracic/Lumbar Spine: thoracic and lumbar spine normal to inspection, straight leg raise negative bilaterally, No thoraco-lumbar ROM limited and No lumbar spinal tenderness Skin Lesions: no lesions Rashes: no rashes Wounds: no wounds Neuro General: oriented to person, oriented to place, patient oriented x3, CN's II-XI intact bilaterally and No confusion Cranial nerves: Yes Equal, round and reactive pupils present and Yes Normal accommodation reflex present Cognition (Neuro): normal cognition Speech: No Abnormal speech present Gait exam (Neuro): Normal gait present Motor exam (neuro): 5/5 motor strength present throughout Extrem Right upper extremity: full ROM; no cyanosis Left upper extremity: full ROM; no cyanosis Right lower extremity: no edema Left lower extremity: no edema Psych Appearance: grossly normal Mental Status: mental status grossly normal Affect: normal affect Attitude: cooperative Thought process: Normal thought process present Coding Level of Care Code Est Pt Prev Care 40-64y(81736) Diagnoses Annual physical exam Z00.00 Nephrolithiasis N20.0 MDD (major depressive disorder), recurrent episode, moderate F33.1 Primary hypertension I10 Hypertension type: primary hypertension Mixed hyperlipidemia E78.2 Hyperlipidemia type: mixed hyperlipidemia Lumbar spine pain M54.50 Class 1 obesity E66.811 Additional Codes CAROLANN-7 Assessment Billing - CAROLANN-7 Assessment Tool: CAROLANN-7 Assessment 04022 ([id number]) PHQ-9 - 83766 - PHQ-9 Billing: Yes ([id number]) Assessment & Plan Assessment & Plan (1) Annual physical exam: Code(s): Z00.00 - Encounter for general adult medical examination without abnormal findings Category: Medical Plan: As per HPI (2) Nephrolithiasis: Code(s): N20.0 - Calculus of kidney Category: Medical Plan: Patient has had several episodes of flank pain in the past. Recently having more episodes of right flank pain. Advised on staying well hydrated. Will try to set patient up with Urology for continued evaluation and treatment of his nephrolithiasis. (3) MDD (major depressive disorder), recurrent episode, moderate: Code(s): F33.1 - Major depressive disorder, recurrent, moderate Category: Medical Plan: Patient's PHQ-9 score positive for mild depression. He has been having some personal issues at home which has been causing him to be a bit more depressed. He is not interested in mental health therapy at this time. He is willing to restart sertraline to help him with his depression. (4) HTN (hypertension): Code(s): I10 - Essential (primary) hypertension Category: Medical Qualifiers: Hypertension type: primary hypertension Qualified Code(s): I10 - Essential (primary) hypertension Plan: Patient's blood pressure elevated today in office. He has not been regularly taking his blood pressure medication. He is willing to restart lisinopril hydrochlorothiazide and monitor his blood pressure at home with goal blood pressure to be below 140/90 (5) HLD (hyperlipidemia): Code(s): E78.5 - Hyperlipidemia, unspecified Category: Medical Qualifiers: Hyperlipidemia type: mixed hyperlipidemia Qualified Code(s): E78.2 - Mixed hyperlipidemia Plan: Patient's most recent lipid panel showing elevated total cholesterol and LDL. Unfortunately patient has not been regularly taking his cholesterol medication is willing to start doing so. Will restart simvastatin 40 mg and recheck fasting lipid panel Goal LDL to be below 130 (6) Lumbar spine pain: Code(s): M54.50 - Low back pain, unspecified Category: Medical Plan: Patient does have chronic lower lumbar spine pain. He is willing to get a lower lumbar spine x-ray to start workup. Will consider pain management referral for pain reduction modality. (7) Class 1 obesity: Code(s): E66.811 - Obesity, class 1 Category: Medical Plan: Patient does understand his BMI is over 30 will work on being more physically active and adapting to better eating habits to reduce his weight Orders: Orders XR lumbar spine 4V min 01/07/25 M54.50 - Low back pain, unspecified Microalbumin, Random (w Creat) 01/07/25 I10 - Essential (primary) hypertension Comprehensive [place]. Panel Fast 01/07/25 I10 - Essential (primary) hypertension Complete Blood Count no Diff 01/07/25 I10 - Essential (primary) hypertension Lipid Panel 01/07/25 E78.2 - Mixed hyperlipidemia Referrals Counseling Referral F41.1 - Generalized anxiety disorder Urology Referral N20.0 - Calculus of kidney Ear/Nose/Throat Referral H93.11 - Tinnitus, right ear Medications: New sertraline 50 mg PO DAILY 90 tabs 1RF 90 days F41.1 - Generalized anxiety dis order tamsulosin 0.4 mg PO DAILY 15 caps 0RF 15 days N20.0 - Calculus of kidney tramadol 50 mg PO BID PRN 8 tabs 0RF pain 4 days N20.0 - Calculus of kidney Refilled trazodone 50 mg PO DAILY 90 tabs 1RF F33.1 - Major depressive disorder, recurrent, moderate simvastatin 40 mg PO DAILY 90 tabs 1RF 90 days E78.2 - Mixed hyperlipidemia miscellaneous medical supply (Blood Pressure Cuff) As directed 1 ea 0RF I10 - Essential (primary) hypertension lisinopril-hydrochlorothiazide 10-12.5 mg 1 tab PO DAILY 90 tabs 1RF 90 days I10 - Essential (primary) hypertension Patient Instructions: Goal: Blood pressure to be below 140/90, LDL to be below 130 Barriers: Adherence to physical activity and healthy eating habits
[2025-01-07 16:07] VITALS: BP 160/110; PULSE 85; O2SAT 96; BMI 34.3
== END 2025-01-07 16:45 | disposition home or self-care (01) ==
PROVIDERS: PCP Physician Assistant; Visit Provider Physician Assistant
DX: Z00.00 Encounter for general adult medical examination without abnormal findings (principal); F33.1 Major depressive disorder, recurrent, moderate; E66.811 Obesity, class 1; Z68.34 Body mass index [BMI] 34.0-34.9, adult; N20.0 Calculus of kidney; I10 Essential (primary) hypertension; E78.2 Mixed hyperlipidemia; M54.50 Low back pain, unspecified

== ENCOUNTER → 2025-01-07 16:02 | Outpatient (BNVA) | payer OTHER, SELFPAY | PROVIDERS: PCP Physician Assistant; Visit Provider Physician Assistant | DX: Z00.00 Encounter for general adult medical examination without abnormal findings (principal); N20.0 Calculus of kidney; F33.1 Major depressive disorder, recurrent, moderate; I10 Essential (primary) hypertension; E78.2 Mixed hyperlipidemia; M54.50 Low back pain, unspecified; E66.811 Obesity, class 1; Z68.34 Body mass index [BMI] 34.0-34.9, adult; Z71.3 Dietary counseling and surveillance | CPT/HCPCS: 96127; 99396 ==

== ENCOUNTER 2025-01-23 08:18 | Outpatient (REF) | payer OTHER, SELFPAY ==
--- NOTE | ~2025-01-23 | XR_ITS ---
CLINICAL HISTORY: M54.50 - Low back pain, unspecified 5 views lumbar spine Comparison: None Findings: There are 6 [id number] vertebral bodies in satisfactory alignment. No scoliosis. No acute fractures or dislocation. There is L6-S1 disc space narrowing. No significant facet arthropathy. A 4 x 11 mm faint calcific density projects over the lower aspect of the L3 left transverse process. There is mild body height loss in T12. IMPRESSION: 1. No acute process in the lumbar spine. 2. Lumbosacral degenerative changes. 3. Age-indeterminate mild T12 compression fracture. 4. 4 x 11 mm left paraspinous calcific density suggests a phlebolith or ureteral calculus. Recommend clinical correlation. This document has been electronically signed by: Nell Carter DO on 01/25/2025 13:37:29
[2025-01-23 09:23] LABS: Hematocrit 45.3 % (42.0-52.0); Hemoglobin 15.6 g/dl (14.0-18.0); Mean Corpuscular HGB Conc 34.4 g/dl (31.0-36.0); Mean Corpuscular Hemoglobin 31.1 pg (27.0-33.0); Mean Corpuscular Volume 90.2 fL (80.0-98.0); Platelet Count 287 X10*3/uL (160-400); Red Blood Count 5.02 X10*6/uL (4.60-5.80)
[2025-01-23 09:47] LABS: Alanine Aminotransferase 77 U/L (0-40); Albumin Level 4.3 g/dL (3.5-5.0); Alkaline Phosphatase 62 U/L (39-117); Anion Gap 11 (12-20); Aspartate Amino Transferase 35 U/L (5-37); Blood Urea Nitrogen 16 mg/dL (9-16); Carbon Dioxide 25 mmol/L (22-29); Chloride 110 mmol/L (96-108); Cholesterol 216 mg/dL (<200); Estimated Glomerular Filt Rate > 60; Glucose Fasting 106 mg/dL (60-99); HDL Cholesterol 44 mg/dL (>40); LDL Cholesterol Calculated 151 mg/dL (<100); Potassium 3.8 mmol/L (3.3-5.1); Sodium 142 mmol/L (135-145); Total Protein 7.7 g/dL (6.5-8.0); Triglycerides 105 mg/dL (<150)
[2025-01-23 11:15] LABS: Creatinine Urine 195.35 mg/dL; Microalbum/Creatinine Ratio Ur 33.2 ug/mg cr (<30)
== END 2025-01-23 08:19 | disposition home or self-care (01) ==
LOC: HO.XRAY 08:18
PROVIDERS: PCP Physician Assistant; Visit Provider Physician Assistant
DX: M54.50 Low back pain, unspecified (principal); I10 Essential (primary) hypertension; E78.2 Mixed hyperlipidemia
CPT/HCPCS: 36415; 72110; 80053; 80061; 82043; 82570; 85027

== ENCOUNTER → 2025-01-23 08:42 | Outpatient (BNV) | payer OTHER, SELFPAY | PROVIDERS: PCP Physician Assistant; Visit Provider Radiology Diagnostic Radiology | DX: M51.370 Other intervertebral disc degeneration, lumbosacral region with discogenic back pain only (principal) | CPT/HCPCS: 72110 ==

== ENCOUNTER 2025-01-28 12:31 | Emergency (ER) | payer OTHER, SELFPAY ==
--- NOTE | ~2025-01-28 | CT_ITS ---
CLINICAL HISTORY: L flank pain, hx stones CT abdomen and pelvis without contrast Comparison: None Findings: Lung bases clear. Mild left hydroureteronephrosis secondary to left mid ureteral calculus measuring 5-6 mm. No additional urinary tract calculus. The remaining solid organs and gallbladder are normal. No free fluid or free air within the abdomen or pelvis. Normal stomach, small bowel, appendix, and colon. No aortic aneurysm. Bones intact. IMPRESSION: Mild left hydroureteronephrosis secondary to left mid ureteral calculus measuring 5-6 mm. This document has been electronically signed by: Carlos Melendez MD on 01/28/2025 21:04:35
[2025-01-28 12:54] VITALS: BP 178/120; PULSE 76; RESP 16; TEMP 36.8; O2SAT 97; BMI 33.9
--- NOTE | 2025-01-28 12:55 | ED_ITS ---
HPI - General Adult General Chief complaint: Abdominal Pain Stated complaint: Pain in L side Time Seen by Provider: 01/28/25 19:28 Source: patient Mode of arrival: ambulatory Limitations: no limitations History of Present Illness ED Provider: Dr. Domonique Esteban HPI narrative: Patient comes to the emergency room complaining of left-sided flank pain intermittently for the last 3 days. Patient states that he has history of kidney stones and it feels about the same. Patient states he has been nauseous and having some episodes of vomiting. Denies any hematuria or dysuria, denies fever chills. Related Data Home Medications ?Medication ?Instructions ?Recorded ?Confirmed hydroxyzine HCl 50 mg tablet 50 mg PO BEDTIME 06/10/23 01/07/25 Previous Rx's ?Medication ?Instructions ?Recorded lisinopril 10 mg tablet 10 mg PO DAILY HTN #90 tabs 10/01/23 amlodipine 10 mg tablet 10 mg PO DAILY #90 tabs 03/23/24 lisinopril 10 1 tab PO DAILY 90 days #90 tabs 01/07/25 mg-hydrochlorothiazide 12.5 mg tablet miscellaneous medical supply #1 ea 01/07/25 (Blood Pressure Cuff) sertraline 50 mg tablet 50 mg PO DAILY 90 days #90 tabs 01/07/25 simvastatin 40 mg tablet 40 mg PO DAILY 90 days #90 tabs 01/07/25 tamsulosin 0.4 mg capsule 0.4 mg PO DAILY 15 days #15 caps 01/07/25 tramadol 50 mg tablet 50 mg PO BID PRN pain 4 days #8 01/07/25 tabs trazodone 50 mg tablet 50 mg PO DAILY #90 tabs 01/07/25 ketorolac 10 mg tablet 10 mg PO Q8H PRN pain #12 tabs 01/28/25 ondansetron HCl 4 mg tablet 4 mg PO Q6H PRN nausea and 01/28/25 vomiting #14 tabs oxycodone 5 mg tablet 5 mg PO BID PRN pain #4 tabs 01/28/25 tamsulosin 0.4 mg capsule 0.4 mg PO DAILY #10 caps 01/28/25 Allergies Allergy/AdvReac Type Severity Reaction Status Date / Time No Known Allergies Allergy Verified 01/28/25 12:56 [No Known Allergies*] Review of Systems 2 Review of Systems: Constitutional : No Weight loss, No Fever, No Chills, No Night Sweats, No Fatigue, No Malaise ENT/Mouth : No Hearing loss, No Ear Pain, No Nasal Congestion, No Sinus Pain, No Hoarseness, No sore throat, No Rhinorrhea, No Swallowing Difficulty Eyes: No Eye Pain, No Swelling, No Redness, No Foreign Body, No Discharge, No Vision Changes Cardiovascular : No Chest Pain, No SOB, No Dyspnea on Exertion, No Orthopnea, No Edema, No Palpitations Respiratory : No Cough, No Sputum, No Wheezing, No Smoke Exposure, No Dyspnea Gastrointestinal complaining of nausea and vomiting, No Diarrhea, No Constipation, No abdominal Pain, No Hematochezia, No Melena Genitourinary : no irregular bleeding, No Dysuria, No Urinary Frequency, No Hematuria, No Urinary Incontinence, No Urgency, complaining of left-sided Flank Pain, No Urinary Flow Changes, No Hesitancy Musculoskeletal : No joint pain, No Myalgias, No Joint Swelling Skin : No Skin Lesions, No rash Neuro : No Weakness, No Numbness, No Paresthesias, No Loss of Consciousness, No Dizziness, No Headache Psych : No Anxiety/Panic, No Depression, No SI/HI/AH/VH, No Social Issues, Heme/Lymph: No Bruising, No Bleeding,No Lymphadenopathy Endocrine : No Polyuria, No Polydipsia, No Temperature Intolerance [facility] Past Medical History Medical History (Updated 01/28/25 @ 23:13 by Domonique Esteban MD) Nephrolithiasis HLD (hyperlipidemia) HTN (hypertension) MDD (major depressive disorder), recurrent episode, moderate CAROLANN (generalized anxiety disorder) BPPV (benign paroxysmal positional vertigo) Surgical History No pertinent past surgical history Family History Family History Father Stroke Hypercholesteremia Mother Diabetes Heart disease Brother Diabetes Social History Social History Housing: House Alcohol intake: former Year quit: 2022 Patient Tobacco Use Status: Former Tobacco user Tobacco use type: Cigarette Smoked in Last 30 Days: No e-Cigarette/Vaping Use: Currently Using Second Hand Smoke Exposure: No Use of substances other than those prescribed or required for medical reasons: No Advance Directives: No Advance Directives Information Provided: Yes Do you have a plan to hurt others: No Plan service: No Current occupational status: employed Cognitive needs: No Hearing needs: No Vision needs: Yes Physical Exam ED Vital Signs: Vital Signs - 24 hr 01/28/25 12:54 01/28/25 19:22 01/28/25 22:06 Temperature 98.2 F 97.9 F 98.0 F Pulse Rate 76 119 H 109 H Respiratory Rate 16 18 18 Blood Pressure 178/120 H 149/95 H 141/93 H Pulse Oximetry 97 94 94 Oxygen Delivery Method Room Air Room Air Room Air BMI result Body Mass Index 33.9 Const Other: Appearance: Alert. Oriented X3. No acute distress. Eyes: Pupils equal, round and reactive to light. ENT: Pharynx normal. Neck: Normal inspection. Neck supple. No lymph nodes noted. No crepitus CVS: Normal heart rate and rhythm. Pulses normal. Normal S1 and S2 Respiratory: No respiratory distress. Breath sounds normal. No Wheezing. No rales Abdomen: Soft and nontender. No rigidity. No distention. Mild CVA tenderness on the left Skin: Skin warm and dry. Normal skin color. Normal skin turgor. Extremities: No lower extremity edema. No Lacerations. No Rash Neuro: Oriented X 3. No motor deficit. No sensory deficit. Moving all extremities. No slurred speech. CN 2 through 12 grossly intact Psych: calm, cooperative, normal affect Course Course Course Narrative: This is a rapid medical exam performed by Evelina Metzger NP: Additional HPI, ROS, PE not included below will be deferred to primary provider. Patient is a 44-year-old male with history of kidney stones presenting with left flank pain, nausea, and vomiting for the past few days. States feels similar to prior kidney stones. Plan: labs, UA Medications Administered Discontinued Medications Generic Name Dose Route Start Last Admin Trade Name Freq PRN Reason Stop Dose Admin Sodium Chloride 1,000 mls @ 999 mls/hr 01/28/25 19:47 01/28/25 21:41 Ns IVCONT 01/28/25 20:47 Infused .Q1H1M ONE Infusion Ketorolac Tromethamine 30 mg 01/28/25 19:47 01/28/25 20:41 Ketorolac Tromethamine 30 Mg/Ml Vial IVPUSH 01/28/25 19:48 30 mg ONCE ONE Administration Ondansetron HCl 4 mg 01/28/25 19:47 01/28/25 20:41 Ondansetron Hcl 4 Mg/2 Ml Vial IVPUSH 01/28/25 19:48 4 mg ONCE ONE Administration Medical Decision Making Medical Decision Making [facility] Narrative: My interpretation of the labs: Patient's white blood cell count 12.3, normal hemoglobin, normal chemistry, urine positive for blood, no UTI CT scan shows a left kidney stone 5-6 mm mid ureter Patient receive IV ketorolac, patient states that he feels much better. Patient instructed to follow-up with urology. Differential Diagnosis Differential Diagnoses: The differential diagnosis associated with the presentation includes (Pyelonephritis, ureterolithiasis, musculoskeletal pain) Admission/Observation Consideration of admission/observation: Escalation of care including admission/observation considered (Given patient's presentation, observation was considered) Lab Data [facility] Lab Attestation statement: I reviewed the patient's lab results. 01/28/25 13:05 01/28/25 13:05 Labs: Lab Results 01/28/25 01/28/25 Range/Units 13:05 22:02 WBC 12.3 H (4.8-10.8) X10*3/uL RBC 5.30 (4.60-5.80) X10*6/uL Hgb 16.4 (14.0-18.0) g/dl Hct 47.6 (42.0-52.0) % MCV 89.8 (80.0-98.0) fL MCH 30.9 (27.0-33.0) pg MCHC 34.5 (31.0-36.0) g/dl RDW 13.3 (11.0-16.0) % Plt Count 290 (160-400) X10*3/uL MPV 9.3 L (9.4-12.4) fL Immature Gran % (Auto) 0.4 (0.0-0.4) % Neut % (Auto) 65.5 (45-73) % Lymph % (Auto) 24.2 (20-40) % [place] % (Auto) 8.7 (2-11) % Eos % (Auto) 0.6 (0-4) % Baso % (Auto) 0.6 (0-2) % Lymph # (Auto) 3.0 (1.2-4.9) X10*3/uL [place] # (Auto) 1.1 (0.1-1.2) X10*3/uL Eos # (Auto) 0.1 (0.0-0.4) X10*3/uL Baso # (Auto) 0.1 (0.0-0.2) X10*3/uL Abs Immat Gran (auto) 0.05 H (0.00-0.03) X10*3/uL Absolute Neuts (auto) 8.1 (2.0-8.3) x10*3/uL Absolute Nucleated RBC 0.000 (0.0-0.012) X10*3/uL Nucleated RBC % (auto) 0.0 (0.0-0.2) /100WBC Sodium 143 (135-145) mmol/L Potassium 3.8 (3.3-5.1) mmol/L Chloride 107 (96-108) mmol/L Carbon Dioxide 29 (22-29) mmol/L Anion Gap 11 L (12-20) BUN 14 (9-16) mg/dL Creatinine 1.06 (0.5-1.4) mg/dL Estim Creat Clear Calc 114.6 Estimated GFR > 60 Random Glucose 118 H (60-115) mg/dL Calcium 9.2 (8.4-10.2) mg/dL Total Bilirubin 0.8 (0.0-1.0) mg/dL AST 37 (5-37) U/L ALT 83 H (0-40) U/L Alkaline Phosphatase 66 (39-117) U/L Total Protein 7.4 (6.5-8.0) g/dL Albumin 4.3 (3.5-5.0) g/dL Urine Color Yellow Urine Appearance Clear Urine pH 6.5 (5.0-9.0) Ur Specific Burke 1.020 (1.005-1.025) Urine Protein Negative (Neg-Trace) mg/dL Urine Glucose (UA) Negative (Negative) mg/dL Urine Ketones Negative (Negative) mg/dL Urine Blood Large (3+) H (Negative) Urine Nitrite Negative (Negative) Ur Leukocyte Esterase Trace H (Negative) Urine RBC >20 H (0-2) /HPF Urine WBC 0-5 (0-5) /HPF Ur Squamous Epith Cells 0-2 (0-2) /HPF Urine Bacteria None Seen (None Seen) Hyaline Casts 0-2 (0-2) /LPF Independent Interpretation I performed an independent interpretation of an: CT Scan Radiology Impression Discussion of test interpretation with radiology: I have reviewed the radiologist's reading. Radiologist Impression: Lung bases clear. Mild left hydroureteronephrosis secondary to left mid ureteral calculus measuring 5-6 mm. No additional urinary tract calculus. The remaining solid organs and gallbladder are normal. No free fluid or free air within the abdomen or pelvis. Normal stomach, small bowel, appendix, and colon. No aortic aneurysm. Bones intact. IMPRESSION: Mild left hydroureteronephrosis secondary to left mid ureteral calculus measuring 5-6 mm. Critical Care Time Critical Care Time Critical Care Time: Yes Total Critical Care Time: 60 Attestation: I have personally provided critical care time. Time includes review of lab data, radiology results, discussion with consultants, and monitoring for potential decompensation. Intervention performed as documented. Discharge Plan Discharge Clinical Impression: Ureterolithiasis Patient Disposition: Home, Self-Care Instructions: Ureteral Stones (ED) Additional Instructions: Please follow-up with your primary care physician tomorrow. If you have any worsening or new symptoms, please return to the emergency room or call 911 Prescriptions: New tamsulosin 0.4 mg capsule 0.4 mg PO DAILY Qty: 10 0RF ondansetron HCl 4 mg tablet 4 mg PO Q6H PRN (Reason: nausea and vomiting) Qty: 14 0RF oxycodone 5 mg tablet 5 mg PO BID PRN (Reason: pain) Qty: 4 0RF Rx Instructions: Partial Fill upon patient request. Only use if ketorolac does not alleviate the pain ketorolac 10 mg tablet 10 mg PO Q8H PRN (Reason: pain) Qty: 12 0RF Rx Instructions: Do not use with NSAIDs only oxycodone if needed or Tylenol No Action lisinopril 10 mg tablet 10 mg PO DAILY Qty: 90 1RF amlodipine 10 mg tablet 10 mg PO DAILY Qty: 90 1RF hydroxyzine HCl 50 mg tablet 50 mg PO BEDTIME trazodone 50 mg tablet 50 mg PO DAILY Qty: 90 1RF lisinopril-hydrochlorothiazide 10-12.5 mg tablet 1 tab PO DAILY 90 Days Qty: 90 1RF tamsulosin 0.4 mg capsule 0.4 mg PO DAILY 15 Days Qty: 15 0RF tramadol 50 mg tablet 50 mg PO BID PRN (Reason: pain) 4 Days Qty: 8 0RF simvastatin 40 mg tablet 40 mg PO DAILY 90 Days Qty: 90 1RF sertraline 50 mg tablet 50 mg PO DAILY 90 Days Qty: 90 1RF (DME) Blood Pressure Cuff Misc See Rx Instructions .ROUTE .MEDSUPPLY Qty: 1 0RF Rx Instructions: As directed Referrals: Cristobla Austin MD [Physician] - 02/01/25 Stand Alone Forms: Work/School Release Print Language: Mongolian
[2025-01-28 13:08] LABS: MANUAL DIFF FLAG NO
[2025-01-28 13:12] LABS: Basophils Absolute Auto 0.1 X10*3/uL (0.0-0.2); Basophils Percent Auto 0.6 % (0-2); Eosinophils Absolute Auto 0.1 X10*3/uL (0.0-0.4); Eosinophils Percent Auto 0.6 % (0-4); Hematocrit 47.6 % (42.0-52.0); Hemoglobin 16.4 g/dl (14.0-18.0); Imm Gran Abs Auto 0.05 X10*3/uL (0.00-0.03); Imm Gran Pct Auto 0.4 % (0.0-0.4); Lymphocytes Percent Auto 24.2 % (20-40); Mean Corpuscular HGB Conc 34.5 g/dl (31.0-36.0); Mean Corpuscular Hemoglobin 30.9 pg (27.0-33.0); Mean Corpuscular Volume 89.8 fL (80.0-98.0); Mean Platelet Volume 9.3 fL (9.4-12.4); Monocytes Absolute Auto 1.1 X10*3/uL (0.1-1.2); Monocytes Percent Auto 8.7 % (2-11); Neutrophils Absolute Auto 8.1 x10*3/uL (2.0-8.3); Neutrophils Percent Auto 65.5 % (45-73); Platelet Count 290 X10*3/uL (160-400); Red Cell Distribution Width 13.3 % (11.0-16.0); White Blood Count 12.3 X10*3/uL (4.8-10.8)
[2025-01-28 13:26] LABS: Alanine Aminotransferase 83 U/L (0-40); Albumin Level 4.3 g/dL (3.5-5.0); Alkaline Phosphatase 66 U/L (39-117); Anion Gap 11 (12-20); Aspartate Amino Transferase 37 U/L (5-37); Bilirubin Total 0.8 mg/dL (0.0-1.0); Blood Urea Nitrogen 14 mg/dL (9-16); Calcium 9.2 mg/dL (8.4-10.2); Carbon Dioxide 29 mmol/L (22-29); Chloride 107 mmol/L (96-108); Creatinine Clr Calc Pharmacy 114.6; Estimated Glomerular Filt Rate > 60; Glucose Random 118 mg/dL (60-115); Potassium 3.8 mmol/L (3.3-5.1); Sodium 143 mmol/L (135-145); Total Protein 7.4 g/dL (6.5-8.0)
[2025-01-28 19:22] VITALS: BP 149/95; PULSE 119; RESP 18; TEMP 36.6; O2SAT 94
[2025-01-28] MEDS: 0.9 % Sodium Chloride 1,000 ML 999 ML IVCONT (20:41)
[2025-01-28] MEDS: Ketorolac Tromethamine 30 MG/ML VIAL IVPUSH (20:41)
[2025-01-28] MEDS: ondansetron HCL 4 MG/2 ML VIAL IVPUSH (20:41)
[2025-01-28 22:06] VITALS: BP 141/93; PULSE 109; RESP 18; TEMP 36.7; O2SAT 94
[2025-01-28 22:10] LABS: Appearance Urine Clear; Color Urine Yellow; Glucose Urine UA Negative (Negative); Leukocyte Esterase Urine Trace (Negative); Nitrite Urine Negative (Negative); PH 6.5 (5.0-9.0); UMIC TRIGGER UACC YES; Urine Blood Large (3+) (Negative); Urine Ketones Negative (Negative); Urine Protein Negative (Neg-Trace)
[2025-01-28 22:12] LABS: Bacteria Urine None Seen (None Seen); Hyaline Casts Urine 0-2 /LPF (0-2); RBC Urine >20 /HPF (0-2); Squamous Epithelial Cell Urine 0-2 /HPF (0-2); WBC Urine 0-5 /HPF (0-5)
--- NOTE | 2025-01-28 23:01 | PC.NURSE ---
Report given to ANA Funk.
--- NOTE | 2025-01-28 23:16 | PC.NURSE ---
Took over care from ANA Hendrix, Iv removed, plan for pt to be discharge home per provider Dr. Esteban
--- NOTE | 2025-01-28 23:23 | PC.NURSE ---
Reviewed discharge instruction with pt, pt verbalized understanding, no sign of distress, pt ambulated with a steady gait.
[2025-01-28 23:26] VITALS: BP 141/93; PULSE 109; RESP 18; TEMP 36.7; O2SAT 94
== END 2025-01-28 23:26 | disposition home or self-care (01) ==
PROVIDERS: Registered Nurse Emergency; Emergency Provider Emergency Medicine; PCP Physician Assistant
DX: N13.2 Hydronephrosis with renal and ureteral calculous obstruction (principal); R10.9 Unspecified abdominal pain; I10 Essential (primary) hypertension; E78.5 Hyperlipidemia, unspecified; Z87.891 Personal history of nicotine dependence; Z87.442 Personal history of urinary calculi; Z79.02 Long term (current) use of antithrombotics/antiplatelets; Z79.899 Other long term (current) drug therapy
CPT/HCPCS: 36415; 74176; 80053; 81001; 85025; 96361; 96374; 96375; 99284; 99285; J1885; J2405

== ENCOUNTER → 2025-01-28 19:47 | Outpatient (BNV) | payer OTHER, SELFPAY | PROVIDERS: Emergency Provider Emergency Medicine; PCP Physician Assistant; Visit Provider Radiology Diagnostic Radiology | DX: N20.1 Calculus of ureter (principal) | CPT/HCPCS: 74176 ==

== ENCOUNTER 2025-02-04 11:19 | Outpatient (AMB) | payer OTHER, SELFPAY ==
--- NOTE | 2025-02-04 11:32 | MHC.OFFVIS ---
Intake Visit Reasons: Er f/u kidney stone Intake Note: Patient is present for ER F/U KIDNEY STONE Urology Medication:TAMSULOSIN Antibiotic Allergy:NONE Blood Thinner:NONE Morgue Technician Required: No Allergies No Known Allergies [No Known Allergies*] Allergy (Verified 03/31/25 16:10) HPI Comments Details: Mitchel is a pleasant male. He is seen for the following urologic conditions - follow-up for kidney stone Nephrolithiasis Mild left hydroureteronephrosis secondary to left mid ureteral calculus measuring 5-6 mm. Imaging reviewed stone closer to 7 mm Unlikely to pass recommend ureteroscopy with laser lithotripsy [facility] Medical History (Updated 04/03/25 @ 15:48 by Ant Fiugeroa PA-C) Nephrolithiasis HLD (hyperlipidemia) HTN (hypertension) MDD (major depressive disorder), recurrent episode, moderate CAROLANN (generalized anxiety disorder) BPPV (benign paroxysmal positional vertigo) Surgical History No pertinent past surgical history Family History Father Stroke Hypercholesteremia Mother Diabetes Heart disease Brother Diabetes Social History Housing: House Alcohol intake: former Year quit: 2022 Patient Tobacco Use Status: Former Tobacco user Tobacco use type: Cigarette e-Cigarette/Vaping Use: Currently Using Second Hand Smoke Exposure: No service: No Current occupational status: employed Cognitive needs: No Hearing needs: No Vision needs: Yes Review of Systems Const Denies chills and Denies fever(s) Card Reports no additional complaints and Denies syncope Resp Denies cough GI Denies abdominal pain and Denies heartburn Reports as per HPI and Denies change in libido Neuro Denies syncope Psych Denies change in libido Endo Denies change in libido Physical Exam Const General: cooperative, healthy appearing, comfortable and no acute distress Orientation/consciousness: patient oriented x3 HEENT Face and sinus: Yes normal facial exam Mouth: moist mucous membranes Neck Neck: Yes normal visual inspection, Yes full ROM and Yes trachea midline Chest Chest palpation & inspection: normal inspection of the chest Resp Effort & Inspection: normal respiratory effort, able to speak in complete sentences and no respiratory distress GI Inspection: Yes normal to inspection Back/Spine/Pelvis Cervical Spine: normal cervical lordosis Thoracic/Lumbar Spine: thoracic and lumbar spine normal to inspection Skin General skin exam: no rashes or lesions noted Neuro General: patient oriented x3, gait normal, tone normal and moves all extremities Extrem General: Yes normal to inspection and Yes capillary refill normal Assessment & Plan Assessment & Plan (1) Nephrolithiasis: Code(s): N20.0 - Calculus of kidney Category: Medical Plan Ureteroscopy We discussed the nature of the decision and reasonable alternatives for performing ureteroscopy. Options such as medical therapy were discussed. Interventions include chemical dissolution, ESWL, ureteroscopy with laser lithotripsy and stent placement, PCNL. The relative uncertainties and benefits related to each alternate procedure were adequately discussed. General surgical risks including, but not limited to - pain, bleeding, infection, myocardial infarction, pulmonary embolus, deep vein thrombosis and cerebrovascular accident which may result in further hospitalization were discussed. Full disclosure of the procedure as well as all major risks, benefits and complications were discussed including but not limited to damage to the urethra, bladder and kidney infection, damage to the ureter, stent migration or malposition, scarring to the renal pelvis, remnant stone fragments, subsequent stone passage with need for secondary procedures. The overall secondary procedure rate is approximately 10-15%. The overall clearance rate is approximately 90-95%. Success of the procedure in the short-term does not necessarily guarantee that long-term success will be maintained. Suitable follow up will need to be maintained. The patient showed understanding of discussion and wishes to proceed with - cystoscopy, retrograde, ureteroscopy, possible lithotripsy/stone basketing and stent on the left side Patient Instructions: This note is constructed using voice recognition software. While every effort has been made to ensure accuracy service establishment attendant errors may have been included. Imaging studies, laboratory and physical exam results were discussed and reviewed in detail. No major barriers to patient understanding were identified. An opportunity to ask questions regarding the treatment plan was provided. All questions were answered. The patient expressed understanding and agreement with the above treatment plan. The patient is aware they should contact our office by phone for worsening of their current condition or the appearance of new urologic symptoms. Compliance is encouraged with any medications and followup testing that is ordered. It is a privilege to participate in the urologic care of your patient. If you have any questions or concerns regarding treatment for the above conditions, or other urologic issues, please do not hesitate to contact me. The office telephone contact is [phone]. Sincerely, Dr Cristobal Austin MD, [facility] - Urology Compassionate Specialist Care for the Genitourinary System Coding Level of Care Code New Pt Level 4 (36194) Diagnoses Nephrolithiasis N20.0
== END 2025-02-04 12:33 | disposition home or self-care (01) ==
LOC: HO.HUSH 11:20
PROVIDERS: PCP Physician Assistant; Visit Provider Urology
DX: N20.0 Calculus of kidney (principal)
CPT/HCPCS: 99204

== ENCOUNTER → 2025-02-04 11:19 | Outpatient (BNVA) | payer OTHER, SELFPAY | PROVIDERS: PCP Physician Assistant; Visit Provider Urology | DX: N20.0 Calculus of kidney (principal) | CPT/HCPCS: 99202 ==

== ENCOUNTER 2025-03-31 14:41 | Outpatient (AMB) | payer OTHER, SELFPAY ==
--- NOTE | 2025-03-31 15:46 | A.OFFPC_ITS ---
Vital Signs 03/31/25 15:50 Height 5 ft 11 in Weight 243 lb 4 oz BMI 33.9 BP 156/106 H Blood Pressure Location Lt brachial Position Sitting Pulse 70 Pulse Source Pulse Oximeter Temp 97.3 F Temp Source Temporal Artery Scan Pulse Oximetry (%) 95 Oxygen Delivery Method Room Air Intake Visit Reasons: 2 month f/u Speech Language Pathologist Assistant Required: No Accompanied by: Self / Same As Patient Allergies No Known Allergies [No Known Allergies*] Allergy (Verified 03/31/25 16:10) Medication List - Last Reconciled 03/31/25 by Ant Figueroa PA-C amlodipine 10 mg PO DAILY hydroxyzine HCl 50 mg PO BEDTIME ketorolac 10 mg PO Q8H PRN lisinopril 10 mg PO DAILY lisinopril-hydrochlorothiazide 10-12.5 mg 1 tab PO DAILY 90 days miscellaneous medical supply (Blood Pressure Cuff) As directed ondansetron HCl 4 mg PO Q6H PRN oxycodone 5 mg PO BID PRN sertraline 50 mg PO DAILY 90 days simvastatin 40 mg PO DAILY 90 days tamsulosin 0.4 mg PO DAILY tamsulosin 0.4 mg PO DAILY 15 days tramadol 50 mg PO BID PRN 4 days trazodone 50 mg PO DAILY Tobacco use date assessed: 01/07/25 Dental Screening Dental Screen Date: 01/07/25 HPI 2 month f/u HPI Details Patient is a 44-year-old male here today for follow-up visit. Patient has a past medical history significant for MDD, anxiety, hyperlipidemia, hypertension. -Concern- > Nephrolithiasis -- has follo wed up with the [facility] due to his kidney stone that measured about 7 mm and deemed on possible. He is awaiting to be scheduled for surgical removal and stent placement. Fortunately is not having anymore pain at this time though has access to pain medication and tamsulosin for renal colic. .. Chronic low back pain: The patient reports ongoing pain from a T12 vertebral compression fracture, which is aggravated by changes in position, such as getting up from lying down. He recalls a history of a seizure-related fall and a separate fall on concrete steps in his mid-20s, but no definitive cause for the fracture has been identified. .. Hypertension: Blood pressure elevated today in office. He reports he has not been regularly taking his blood pressure medication PLAN: Will restart blood pressure medication and monitor blood pressure at home with goal blood pressure to be below 140/90 .. Major depressive disorder: Continues on SSRI therapy, he is seeing a mental health therapist and a psychiatrist. He generally feels well from a mental health point of view. .. Hyperlipidemia: Most recent lipid panel showing very elevated total cholesterol and LDL. He has not been taking his cholesterol medication. Laboratory Tests 10/30/21 03/23/22 06/11/23 12:24 11:16 11:24 WBC 7.0 RBC 4.91 Hgb 15.2 Creatinine 0.98 0.86 LDL Cholesterol, C alc 188 235 Cholesterol 311 01/08/24 14:13 WBC RBC Hgb Creatinine LDL Cholesterol, C alc Cholesterol 252 H [facility] Medical History (Updated 04/03/25 @ 15:48 by Ant Figueroa PA-C) Nephrolithiasis HLD (hyperlipidemia) HTN (hypertension) MDD (major depressive disorder), recurrent episode, moderate CAROLANN (generalized anxiety disorder) BPPV (benign paroxysmal positional vertigo) Surgical History No pertinent past surgical history Family History Father Stroke Hypercholesteremia Mother Diabetes Heart disease Brother Diabetes Social History Housing: House Alcohol intake: former Year quit: 2022 Patient Tobacco Use Status: Former Tobacco user Tobacco use type: Cigarette e-Cigarette/Vaping Use: Currently Using Second Hand Smoke Exposure: No service: No Current occupational status: employed Cognitive needs: No Hearing needs: No Vision needs: Yes Questionnaire Thrive Questionnaire Date Thrive assessed: 01/07/25 I am a: Patient What is your living situation today?: I have a steady place to live Within the past 12 months, did the food you bought not last and you didn't have the money to get more?: Often true Within the past 12 months, did you worry whether your food would run out before you got money to buy more?: Never true Do you have trouble paying for medicines?: No Do you have trouble getting transportation to medical appointments?: No Do you have trouble paying your heating and electricity bill?: No Do you have trouble taking care of your child, family member or friend?: No Do you have trouble with day-to-day activities such as bathing, preparing meals, shopping, managing finances, etc.?: No Are you currently unemployed and looking for a job?: No Are you interested in more education?: No Please select the resources that you would like help with: None Currently or been in a relationship where the following occur: No concerns reported THRIVE Score: 1 CAROLANN-7 AMB Questionnaire CAROLANN-7 Date CAROLANN - 7 assessed: 01/07/25 Source: Developed by Drs. Neville Jones, Kim Alvarado, Daniel Bills and colleagues, with an educational wolf from [employer]. Review of Systems Const Denies headache(s) Eyes Denies loss of vision ENT Denies vertigo, Denies dizziness, Denies headache(s) and Denies sore throat Card Denies chest pain, Denies leg edema and Denies lightheadedness Resp Denies cough, Denies hemoptysis and Denies wheezing GI Denies abdominal pain, Denies melena, Denies constipation, Denies diarrhea and Denies vomiting Denies dysuria, Denies urinary frequency and Denies urinary urgency Musc Reports back pain, Denies arthralgias, Denies joint swelling, Denies numbness and Denies tingling Neuro Denies Abnormal speech present, Denies behavioral changes, Denies vertigo, Denies dizziness, Denies headache(s), Denies loss of vision, Denies memory loss, Denies numbness and Denies tingling Psych Denies anxiety, Denies behavioral changes, Denies depression, Denies memory loss and Denies panic attacks Raman/Lymph Denies easy bleeding and Denies easy bruising Aller/Immun Denies wheezing Physical exam (Primary Care) Vital Signs: Last Vital Signs Temp 97.3 F 03/31/25 15:50 Pulse 70 03/31/25 15:50 BP 156/106 H 03/31/25 15:50 Pulse Ox 95 03/31/25 15:50 Oxygen Delivery Method Room Air 03/31/25 15:50 BMI result Body Mass Index 33.9 Tobacco/Smoking Status: Tobacco use Status Tobacco use date assessed 01/07/25 03/31/25 15:48 Patient Tobacco Use Status Former Tobacco user 03/31/25 15:48 Tobacco use type Cigarette 03/31/25 15:48 e-Cigarette/Vaping Use Currently Using 03/31/25 15:48 Thrive Assessment: Date of Thrive Assessment Date Thrive assessed 01/07/25 03/31/25 15:48 Currently or been in a relationship where the following occur: No concerns reported Const General: healthy appearing, no acute distress, alert and awake Nutritional Appearance: well nourished Orientation/consciousness: oriented to person, oriented to place and oriented to time HENMT Ears: TM's normal bilaterally General nose exam: Normal nasal mucous membranes and turbinates present Eyes Conjunctivae: conjunctivae normal Sclerae: sclerae normal Pupils: Equal, round and reactive pupils present Neck Neck: Yes no lymphadenopathy and Yes no JVD Thyroid: Thyroid normal Carotids: no bruits Resp Effort & Inspection: normal respiratory effort and not tachypneic Auscultation: no crackles, no rales, no rhonchi and no wheezes Cardio Rate: regular rate Rhythm: regular rhythm Heart sounds: no murmurs and normal S1 and S2 GI Palpation (GI): Soft to palpation, nontender, no hepatomegaly and no splenomegaly Auscultation: normal bowel sounds Skin General skin exam: no rashes or lesions noted and dry skin Neuro General: oriented to person, oriented to place and oriented to time Cranial nerves: Yes Equal, round and reactive pupils present Speech: No Abnormal speech present Gait exam (Neuro): Normal gait present Motor exam (neuro): no tremor noted Extrem Right upper extremity: full ROM Left upper extremity: full ROM Right lower extremity: full ROM; no edema Left lower extremity: full ROM; no edema Psych Mental Status: mental status grossly normal Speech and movement: Normal speech and movement present Affect: normal affect Attitude: cooperative Thought process: Normal thought process present Coding Level of Care Code Est Pt Level 4 (54122) Diagnoses Nephrolithiasis N20.0 Primary hypertension I10 Hypertension type: primary hypertension Mixed hyperlipidemia E78.2 Hyperlipidemia type: mixed hyperlipidemia Class 1 obesity E66.811 Compression fracture of T12 vertebra, sequela S22.080S Encounter type: sequela Assessment & Plan Assessment & Plan (1) Nephrolithiasis: Code(s): N20.0 - Calculus of kidney Category: Medical Plan: Patient has had several episodes of flank pain in the past. Recently having more episodes of right flank pain. He has been found to have a large left ki dney stone measuring 7 mm. He has been evaluated by [facility] and was to be set up for surgical removal of the kidney stone. Fortunately currently not having any flank pain and does have access to pain medication and tamsulosin in case of renal colic. (2) HTN (hypertension): Code(s): I10 - Essential (primary) hypertension Category: Medical Qualifiers: Hypertension type: primary hypertension Qualified Code(s): I10 - Essential (primary) hypertension Plan: Patient's blood pressure elevated today in office. He has not been regularly taking his blood pressure medication. He is willing to restart lisinopril hydrochlorothiazide and monitor his blood pressure at home with goal blood pressure to be below 140/90 (3) HLD (hyperlipidemia): Code(s): E78.5 - Hyperlipidemia, unspecified Category: Medical Qualifiers: Hyperlipidemia type: mixed hyperlipidemia Qualified Code(s): E78.2 - Mixed hyperlipidemia Plan: Patient's most recent lipid panel showing elevated total cholesterol and LDL. Unfortunately patient has not been regularly taking his cholesterol medication is willing to start doing so. Will restart simvastatin 40 mg and recheck fasting lipid panel Goal LDL to be below 130 (4) Class 1 obesity: Code(s): E66.811 - Obesity, class 1 Category: Medical Plan: Patient does understand his BMI is over 30 will work on being more physically active and adapting to better eating habits to reduce his weight (5) Compression fracture of T12 vertebra: Code(s): S22.080A - Wedge compression fracture of T11-T12 vertebra, initial encounter for closed fracture Category: Medical Qualifiers: Encounter type: sequela Qualified Code(s): S22.080S - Wedge compression fracture of T11-T12 vertebra, sequela Plan: The patient has persistent pain from a T12 fracture. I recommend an MRI of the thoracic spine and potential referral to pain management for stabilization options. Orders: Orders MR thoracic spine wo con 03/31/25 S22.080A - Wedge compression fracture of T11- T12 vertebra, initial encounter for closed fracture Referrals Pain Management Referral S22.080A - Wedge compression fracture of T11-T12 vertebra, initial encounter for closed fracture Medications: Refilled lisinopril-hydrochlorothiazide 10-12.5 mg 1 tab PO DAILY 90 tabs 1RF 90 days I10 - Essential (primary) hypertension amlodipine 10 mg PO DAILY 90 tabs 1RF I10 - Essential (primary) hypertension
[2025-03-31 15:50] VITALS: BP 156/106; PULSE 70; TEMP 36.3; O2SAT 95; BMI 33.9
== END 2025-03-31 16:28 | disposition home or self-care (01) ==
LOC: HO.HMCH 14:42
PROVIDERS: PCP Physician Assistant; Visit Provider Physician Assistant
DX: N20.0 Calculus of kidney (principal); Z68.33 Body mass index [BMI] 33.0-33.9, adult; E66.811 Obesity, class 1; I10 Essential (primary) hypertension; E78.2 Mixed hyperlipidemia; S22.080S Wedge compression fracture of T11-T12 vertebra, sequela

== ENCOUNTER → 2025-03-31 14:41 | Outpatient (BNVA) | payer OTHER, SELFPAY | PROVIDERS: PCP Physician Assistant; Visit Provider Physician Assistant | DX: N20.0 Calculus of kidney (principal); I10 Essential (primary) hypertension; F41.9 Anxiety disorder, unspecified; M54.50 Low back pain, unspecified; F32.9 Major depressive disorder, single episode, unspecified; E78.2 Mixed hyperlipidemia; E66.811 Obesity, class 1; S22.080S Wedge compression fracture of T11-T12 vertebra, sequela; X58.XXXS Exposure to other specified factors, sequela; Z68.33 Body mass index [BMI] 33.0-33.9, adult | CPT/HCPCS: 99212 ==

== ENCOUNTER → 2025-04-15 18:46 | Outpatient (BNV) | payer OTHER, SELFPAY | PROVIDERS: PCP Physician Assistant; Visit Provider Radiology Diagnostic Radiology | DX: M47.814 Spondylosis without myelopathy or radiculopathy, thoracic region (principal) | CPT/HCPCS: 72146 ==

== ENCOUNTER 2025-04-15 18:47 | Outpatient (REF) | payer OTHER, SELFPAY ==
--- NOTE | ~2025-04-15 | MR_ITS ---
EXAMINATION: MR THORACIC SPINE WITHOUT CONTRAST CLINICAL INFORMATION: Wedge-shaped compression deformity at, T11-T12 based upon x-ray dated January 23, 2025. COMPARISON: None available. TECHNIQUE: MRI of the thoracic spine was obtained using routine sequences without contrast. FINDINGS: No bone marrow STIR signal abnormality. Multilevel marginal osteophyte formation and decreased disc examination throughout the axial skeleton. Multilevel Schmorl nodes in the endplates of the axial skeleton from T7 to T11. Less than 10% volume loss wedge-shaped compression deformity at T12, old. There is normal alignment. The thoracic spinal cord caliber and signal is normal. The conus medullaris ends at inferior endplate of L1 with normal signal. There is no cord compression from T1 to T12. Small central disc protrusion at T6-7 without cord compression. Small right subarticular disc protrusion T7-8 without cord compression. Small central disc protrusion T5-6 without cord compression. No prevertebral compartment hematoma, mass or fluid collection. MR/MR thoracic spine wo con IMPRESSION: Multilevel spondylosis without acute fracture or gross listhesis. No cord compression, cord edema and or myelopathy. Electronically signed by: Abdoulaye Sheets MD 04/16/2025 08:03 AM EDT
== END 2025-04-15 18:48 | disposition home or self-care (01) ==
LOC: HO.MRI 18:47
PROVIDERS: PCP Physician Assistant; Visit Provider Physician Assistant
DX: S22.080A Wedge compression fracture of T11-T12 vertebra, initial encounter for closed fracture (principal)
CPT/HCPCS: 72146

== ENCOUNTER 2025-04-20 12:34 | Outpatient (AMB) | payer OTHER, SELFPAY ==
[2025-04-20 12:49] VITALS: BP 152/118; PULSE 85; TEMP 36.3; O2SAT 97; BMI 34.3
--- NOTE | 2025-04-20 12:49 | A.OFFPC_ITS ---
Vital Signs 04/20/25 12:49 Height 5 ft 11 in Weight 246 lb BMI 34.3 BP 152/118 H Blood Pressure Location Lt brachial Position Sitting Pulse 85 Pulse Source Pulse Oximeter Temp 97.3 F Temp Source Temporal Artery Scan Pulse Oximetry (%) 97 Oxygen Delivery Method Room Air Intake Visit Reasons: skin tag removal ( 30 MIN ) Naturopathic Oncology Provider Required: No Accompanied by: Self / Same As Patient Allergies No Known Allergies [No Known Allergies*] Allergy (Verified 04/20/25 13:02) Tobacco use date assessed: 01/07/25 Dental Screening Dental Screen Date: 01/07/25 HPI skin tag removal ( 30 MIN ) HPI Details Patient is a 45-year-old male here today for skin tag removal and follow up in his medical conditions. Hypertension: Patient's blood pressure elevated today in office, he reports he is not consistent with taking his blood pressure medication and promises to start taking his meds on a daily basis. Nephrolithiasis: Has been set up with [facility] for removal of kidney stone with stent placement in early May 2025 Thoracic compression fracture: Recent MRI showed spondylosis at multi levels of his thoracic spine he does have an old T12 fracture. He does have thoracic spine pain that is severe at times and has upcoming appointment with pain management for pain reduction modality evaluation. [facility] Medical History (Updated 04/20/25 @ 14:05 by Ant Figueroa PA-C) Nephrolithiasis HLD (hyperlipidemia) HTN (hypertension) MDD (major depressive disorder), recurrent episode, moderate CAROLANN (generalized anxiety disorder) BPPV (benign paroxysmal positional vertigo) Surgical History No pertinent past surgical history Family History Father Stroke Hypercholesteremia Mother Diabetes Heart disease Brother Diabetes Social History Housing: House Alcohol intake: former Year quit: 2022 Patient Tobacco Use Status: Former Tobacco user Tobacco use type: Cigarette e-Cigarette/Vaping Use: Currently Using Second Hand Smoke Exposure: No service: No Current occupational status: employed Cognitive needs: No Hearing needs: No Vision needs: Yes Questionnaire Thrive Questionnaire Date Thrive assessed: 01/07/25 I am a: Patient What is your living situation today?: I have a steady place to live Within the past 12 months, did the food you bought not last and you didn't have the money to get more?: Often true Within the past 12 months, did you worry whether your food would run out before you got money to buy more?: Never true Do you have trouble paying for medicines?: No Do you have trouble getting transportation to medical appointments?: No Do you have trouble paying your heating and electricity bill?: No Do you have trouble taking care of your child, family member or friend?: No Do you have trouble with day-to-day activities such as bathing, preparing meals, shopping, managing finances, etc.?: No Are you currently unemployed and looking for a job?: No Are you interested in more education?: No Please select the resources that you would like help with: None Currently or been in a relationship where the following occur: No concerns re ported THRIVE Score: 1 CAROLANN-7 AMB Questionnaire CAROLANN-7 Date CAROLANN - 7 assessed: 01/07/25 Source: Developed by Drs. Neville Jones, Kim Alvarado, Daniel Bills and colleagues, with an educational wolf from [employer]. Review of Systems Const Denies headache(s) Eyes Denies loss of vision ENT Denies vertigo, Denies dizziness, Denies headache(s) and Denies sore throat Card Denies chest pain, Denies leg edema and Denies lightheadedness Resp Denies cough, Denies hemoptysis and Denies wheezing GI Denies abdominal pain, Denies melena, Denies constipation, Denies diarrhea and Denies vomiting Denies dysuria, Denies urinary frequency and Denies urinary urgency Musc Denies arthralgias, Denies joint swelling, Denies numbness and Denies tingling Neuro Denies Abnormal speech present, Denies behavioral changes, Denies vertigo, Denies dizziness, Denies headache(s), Denies loss of vision, Denies memory loss, Denies numbness and Denies tingling Psych Denies anxiety, Denies behavioral changes, Denies depression, Denies memory loss and Denies panic attacks Raman/Lymph Denies easy bleeding and Denies easy bruising Aller/Immun Denies wheezing Physical exam (Primary Care) Vital Signs: Last Vital Signs Temp 97.3 F 04/20/25 12:49 Pulse 85 04/20/25 12:49 BP 152/118 H 04/20/25 12:49 Pulse Ox 97 04/20/25 12:49 Oxygen Delivery Method Room Air 04/20/25 12:49 BMI result Body Mass Index 34.3 Tobacco/Smoking Status: Tobacco use Status Tobacco use date assessed 01/07/25 04/20/25 12:52 Patient Tobacco Use Status Former Tobacco user 04/20/25 12:52 Tobacco use type Cigarette 04/20/25 12:52 e-Cigarette/Vaping Use Currently Using 04/20/25 12:52 Thrive Assessment: Date of Thrive Assessment Date Thrive assessed 01/07/25 04/20/25 12:52 Currently or been in a relationship where the following occur: No concerns reported Const General: healthy appearing, no acute distress, alert and awake Nutritional Appearance: well nourished Orientation/consciousness: oriented to person, oriented to place and oriented to time HENMT Ears: TM's normal bilaterally General nose exam: Normal nasal mucous membranes and turbinates present Eyes Conjunctivae: conjunctivae normal Sclerae: sclerae normal Pupils: Equal, round and reactive pupils present Neck Neck: Yes no lymphadenopathy and Yes no JVD Thyroid: Thyroid normal Carotids: no bruits Resp Effort & Inspection: normal respiratory effort and not tachypneic Auscultation: no crackles, no rales, no rhonchi and no wheezes Cardio Rate: regular rate Rhythm: regular rhythm Heart sounds: no murmurs and normal S1 and S2 GI Palpation (GI): Soft to palpation, nontender, no hepatomegaly and no splenomegaly Auscultation: normal bowel sounds Skin General skin exam: no rashes or lesions noted and dry skin Neuro General: oriented to person, oriented to place and oriented to time Cranial nerves: Yes Equal, round and reactive pupils present Speech: No Abnormal speech present Gait exam (Neuro): Normal gait present Motor exam (neuro): no tremor noted Extrem Right upper extremity: full ROM Left upper extremity: full ROM Right lower extremity: full ROM; no edema Left lower extremity: full ROM; no edema Psych Mental Status: mental status grossly normal Speech and movement: Normal speech and movement present Affect: normal affect Attitude: cooperative Thought process: Normal thought process present Office Procedures Skin Tag Removal Details: Cleanse left axillary skin tag with alcohol and iodine. Left to dry. Anesthetized just below skin intact area with xylocaine. Removed skin tag with tweezers and scissors. Dry dressing with triple antibiotic placed on the skin tag site. Patient tolerated procedure well Skin tag removal performed by: Ant Figueroa Informed consent given: Yes Time out checklist: patient, procedure, site marked/identified and positioning of patient Location: axilla Preparation: alcohol and iodine Hemostasis: pressure Patient tolerated procedure: well Complications: No Coding Level of Care Code Est Pt Level 4 (72860) Diagnoses Multiple skin tags of axilla L91.8 Compression fracture of T12 vertebra, sequela S22.080S Encounter type: sequela Nephrolithiasis N20.0 Primary hypertension I10 Hypertension type: primary hypertension Assessment & Plan Assessment & Plan (1) Multiple skin tags of axilla: Code(s): L91.8 - Other hypertrophic disorders of the skin Category: Medical Plan: Removed skin tag from axilla, please see office procedure note. (2) Compression fracture of T12 vertebra: Code(s): S22.080A - Wedge compression fracture of T11-T12 vertebra, initial encounter for closed fracture Category: Medical Qualifiers: Encounter type: sequela Qualified Code(s): S22.080S - Wedge compression fracture of T11-T12 vertebra, sequela Plan: As per HPI patient has upcoming appointment with [facility] for discussion about pain reduction modality. (3) Nephrolithiasis: Code(s): N20.0 - Calculus of kidney Category: Medical Plan: Still has flank pain from time to time . Patient does have upcoming appointment with Urology for removal of kidney stone . (4) HTN (hypertension): Code(s): I10 - Essential (primary) hypertension Category: Medical Qualifiers: Hypertension type: primary hypertension Qualified Code(s): I10 - Essential (primary) hypertension Plan: Patient's blood pressure elevated today in office. He has not been consistent with the use of his lisinopril hydrochlorothiazide. He promises start using his blood pressure medication on a daily basis to control his blood pressure. Goal blood pressures to be below 140/90
== END 2025-04-20 13:42 | disposition home or self-care (01) ==
LOC: HO.HMCH 12:35
PROVIDERS: PCP Physician Assistant; Visit Provider Physician Assistant
DX: L91.8 Other hypertrophic disorders of the skin (principal); S22.080S Wedge compression fracture of T11-T12 vertebra, sequela; N20.0 Calculus of kidney; I10 Essential (primary) hypertension

== ENCOUNTER → 2025-04-20 12:34 | Outpatient (BNVA) | payer OTHER, SELFPAY | PROVIDERS: PCP Physician Assistant; Visit Provider Physician Assistant | DX: I10 Essential (primary) hypertension (principal); L91.8 Other hypertrophic disorders of the skin; M47.814 Spondylosis without myelopathy or radiculopathy, thoracic region; S22.080S Wedge compression fracture of T11-T12 vertebra, sequela; X58.XXXS Exposure to other specified factors, sequela; Z87.442 Personal history of urinary calculi | CPT/HCPCS: 11200; 99212 ==

== ENCOUNTER 2025-04-28 14:42 | Outpatient (AMB) | payer OTHER, SELFPAY ==
--- NOTE | 2025-04-28 14:50 | A.OFFVIS_ITS ---
Vital Signs 04/28/25 14:53 Weight 244 lb BP 171/109 H Blood Pressure Location Lt brachial Position Sitting Respiration 20 Pulse 83 Pulse Source Pulse Oximeter Pulse Oximetry (%) 98 Oxygen Delivery Method Room Air Intake Visit Reasons: Wedge compression fracture of T11-T12 Special Assets Officer Required: No Allergies No Known Allergies (No Known Allergies*) Allergy (Verified 04/28/25 14:50) HPI Comments Details: Mitchel is very pleasant 45 years old gentleman who presents in my office with complains on pain in the mid back slightly off to the right with severity 5 to 7/10. He reports that prolonged sitting aggravates his pain he reports that flexing forward and backwards aggravate his pain. He reports that with prolonged sitting he needs to he needs to stand up and change position frequently. Because of his pain he can not sleep normally. 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 Weather changes aggravate his pain and movements makes his pain worse. Topical medicine also make his pain worse. The pain is most severe in the morning and the afternoon. Pain is less severe during the daytime. In terms of tissue damage he reports his pain as pulsing, throbbing, pounding, shooting, cramping, hot burning, dull, sore, hurting, aching, heavy sensation. He is taking ibuprofen and Tylenol for his pain and they helped minimally to moderately. He had an x-ray and MRI of the lumbar spine results of which dictated as below. Never had physical therapy [facility] chiropractic manipulations [facility] acupuncture occupational therapy. He never had any injections. His past medical history significant for kidney stones and depression. His past surgical history negative, his past social history working individual denies smoking cigarettes currently reports that stopped smoking. He denies drinking alcohol admits to drink 2-3 cups of caffeinated beverages every day and denies recreational drugs. [facility] Medical History (Updated 04/28/25 @ 15:14 by Tomas Rausch MD) Nephrolithiasis HLD (hyperlipidemia) HTN (hypertension) MDD (major depressive disorder), recurrent episode, moderate CAROLANN (generalized anxiety disorder) BPPV (benign paroxysmal positional vertigo) Surgical History No pertinent past surgical history Family History Father Stroke Hypercholesteremia Mother Diabetes Heart disease Brother Diabetes Social History Housing: House Alcohol intake: former Year quit: 2022 Patient Tobacco Use Status: Former Tobacco user Tobacco use type: Cigarette e-Cigarette/Vaping Use: Currently Using Second Hand Smoke Exposure: No service: No Current occupational status: employed Cognitive needs: No Hearing needs: No Vision needs: Yes Review of Systems Const All systems reviewed & are unremarkable except as noted in HPI and below ENT Reports Normal hearing present Neuro Reports Normal hearing present, Denies Abnormal speech present, Denies confusion and Denies Sensory deficit (Neuro) Psych Denies confusion Physical Exam Vital Signs: Last Vital Signs Pulse 83 04/28/25 14:53 Resp 20 04/28/25 14:53 BP 171/109 H 04/28/25 14:53 Pulse Ox 98 04/28/25 14:53 Oxygen Delivery Method Room Air 04/28/25 14:53 Const General: no acute distress; No confusion Nutritional Appearance: obese morbidly obese Orientation/consciousness: patient oriented x3 and No confusion Eyes General: appearance normal, both eyes and all related structures Pupils: Equal, round and reactive pupils present EOM: EOMs intact bilaterally Neck Neck: Yes full ROM Chest Chest palpation & inspection: normal inspection of the chest Resp Effort & Inspection: normal respiratory effort, able to speak in complete sentences, normal respiratory pattern, no audible wheezes and no cough Cardio Jugular venous distension: no JVD GI Inspection: Yes normal to inspection Back/Spine/Pelvis Other: Admits tenderness on palpation in paraspinal right region of the upper lumbar spine. Flexing backwards aggravate his pain. Loading Test is positive on the right. Neuro General: patient oriented x3, gait normal and No confusion Cranial nerves: Yes CN's II-XII intact bilaterally, Yes Equal, round and reactive pupils present, Yes Normal hearing present and Yes Ability to bilaterally elevate shoulders present Speech: No Abnormal speech present Gait exam (Neuro): Normal gait present Motor exam (neuro): 5/5 motor strength present throughout Sensory Exam: No Sensory deficit (Neuro) Extrem General: No pedal edema Psych Speech and movement: Normal speech and movement present Affect: normal affect Attitude: cooperative Thought process: Normal thought process present Thought content: Normal thought content present Insight: Good insight present (Psych) Judgement: Good judgement present (Psych) Results Reviewed Results Reviewed: MR THORACIC SPINE WITHOUT CONTRAST CLINICAL INFORMATION: Wedge-shaped compression deformity at, T11-T12 based upon x-ray dated January 23, 2025. COMPARISON: None available. TECHNIQUE: MRI of the thoracic spine was obtained using routine sequences without contrast. FINDINGS: No bone marrow STIR signal abnormality. Multilevel marginal osteophyte formation and decreased disc examination throughout the axial skeleton. Multilevel Schmorl nodes in the endplates of the axial skeleton from T7 to T11. Less than 10% volume loss wedge-shaped compression deformity at T12, old. There is normal alignment. The thoracic spinal cord caliber and signal is normal. The conus medullaris ends at inferior endplate of L1 with normal signal. There is no cord compression from T1 to T12. Small central disc protrusion at T6-7 without cord compression. Small right subarticular disc protrusion T7-8 without cord compression. Small central disc protrusion T5-6 without cord compression. No prevertebral compartment hematoma, mass or fluid collection. IMPRESSION: Multilevel spondylosis without acute fracture or gross listhesis. No cord compression, cord edema and or myelopathy. Assessment & Plan Assessment & Plan (1) Spondylosis of lumbar region without myelopathy or radiculopathy: Code(s): M47.816 - Spondylosis without myelopathy or radiculopathy, lumbar region Category: Medical (2) Wedge compression fracture of T12 vertebra: Code(s): S22.080A - Wedge compression fracture of T11-T12 vertebra, initial encounter for closed fracture Category: Medical (3) Chronic pain syndrome: Code(s): G89.4 - Chronic pain syndrome Category: Medical (4) Compression fracture of T12 vertebra: Code(s): S22.080A - Wedge compression fracture of T11-T12 vertebra, initial encounter for closed fracture Category: Medical Qualifiers: Encounter type: sequela Qualified Code(s): S22.080S - Wedge compression fracture of T11-T12 vertebra, sequela Plan Most likely the source of his pain is spondylosis of the lumbar spine. Unfortunately this patient never had any physical therapy or conservative modalities to help his pain. I will schedule him for physical therapy. After completion of physical therapy if his pain is still very severe we will discuss possibility of treatment of his pain with injections. I am thinking about medial branch block on the right T12-L1 L2-L3. He reports also history of difficulty sitting for the long time. Possibility exists of vertebra genic pain syndrome. Eventually I may need to send him for the MRI of the lumbar spine to evaluate Modic type changes in the lumbar spine. I will schedule his appointment with me in mid June to evaluate the effects of physical therapy and follow-up. Orders: Orders PT Evaluation and Treatment Today G89.4 - Chronic pain syndrome, M47.816 - Spondylosis without myelopathy or radiculopathy, lumbar region, S22.080A - Wedge compression fracture of T11-T12 vertebra, initial encounter for closed fracture, S22.080S - Wedge compression fracture of T11-T12 vertebra, sequela Medications: New tizanidine 2 mg PO TID PRN 90 tabs 8RF muscle spasticity 30 days Coding Level of Care Code New Pt Level 3 (65541) Diagnoses Spondylosis of lumbar region without myelopathy or radiculopathy M47.816 Wedge compression fracture of T12 vertebra S22.080A Chronic pain syndrome G89.4 Compression fracture of T12 vertebra, sequela S22.080S Encounter type: sequela
[2025-04-28 14:53] VITALS: BP 171/109; PULSE 83; RESP 20; O2SAT 98
== END 2025-04-28 15:08 | disposition home or self-care (01) ==
LOC: HO.PMC 14:43
PROVIDERS: PCP Physician Assistant; Visit Provider Anesthesiology
DX: M47.816 Spondylosis without myelopathy or radiculopathy, lumbar region (principal); S22.080A Wedge compression fracture of T11-T12 vertebra, initial encounter for closed fracture; G89.4 Chronic pain syndrome; S22.080S Wedge compression fracture of T11-T12 vertebra, sequela
CPT/HCPCS: 99203

== ENCOUNTER → 2025-04-28 14:42 | Outpatient (BNVA) | payer OTHER, SELFPAY | PROVIDERS: PCP Physician Assistant; Visit Provider Anesthesiology | DX: M47.816 Spondylosis without myelopathy or radiculopathy, lumbar region (principal); S22.080S Wedge compression fracture of T11-T12 vertebra, sequela; G89.4 Chronic pain syndrome | CPT/HCPCS: 99202 ==

== ENCOUNTER 2025-05-10 09:39 | Day surgery (SDC) | payer OTHER, SELFPAY ==
[2025-05-05 11:07] VITALS: BMI 34.3
--- NOTE | 2025-05-06 09:16 | HO.ANESPROP2 ---
Documented by User: Robina Joe NP 05/06/25 09:18 HPI - Anesthesia Eval Consult details Narrative: 45yo M for Cystoscopy, Ureteroroscopy, Retro, Laser,with stent placement PMFSH Active Problems Active Problems: All Active Problems Chronic pain syndrome (Acute) Wedge compression fracture of T12 vertebra (Acute) Spondylosis of lumbar region without myelopathy or radiculopathy (Acute) Multiple skin tags of axilla (Acute) Compression fracture of T12 vertebra (Acute) Class 1 obesity (Acute) Lumbar spine pain (Acute) Nephrolithiasis (Acute) Tinnitus of right ear (Acute) Gait instability (Acute) Vertigo (Acute) Post concussion syndrome (Acute) CAROLANN (generalized anxiety disorder) (Acute) MDD (major depressive disorder), recurrent episode, moderate (Acute) HTN (hypertension) (Acute) Screening for STD (sexually transmitted disease) (Acute) Right hand pain (Acute) Elevated blood pressure reading in office with diagnosis of hypertension (Acute) Anxiety about health (Acute) HLD (hyperlipidemia) (Acute) Elevated liver enzymes (Acute) Genital warts (Acute) Obese (Acute) Screening for hypercholesterolemia (Acute) Encounter for vasectomy (Acute) Screening for diabetes mellitus (DM) (Acute) Annual physical exam (Acute) Past Medical History Medical History Nephrolithiasis HLD (hyperlipidemia) HTN (hypertension) MDD (major depressive disorder), recurrent episode, moderate CAROLANN (generalized anxiety disorder) BPPV (benign paroxysmal positional vertigo) Family History Family History Father Stroke Hypercholesteremia Mother Diabetes Heart disease Brother Diabetes Surgical History Surgical History No pertinent past surgical history Social History Social History Housing: House Alcohol intake: former Year quit: 2022 Patient Tobacco Use Status: Former Tobacco user Tobacco use type: Smokeless Tobacco e-Cigarette/Vaping Use: Currently Using Second Hand Smoke Exposure: No Use of substances other than those prescribed or required for medical reasons: No Advance Directives: No Advance Directives Information Provided: Yes service: No Current occupational status: employed Cognitive needs: No Hearing needs: No Vision needs: Yes Meds Allergies Allergy/AdvReac Type Severity Reaction Status Date / Time No Known Allergies (No Known Allergy Verified 04/28/25 14:50 Allergies*) Home Medications ?Medication ?Instructions ?Recorded ?Confirmed ?Last Taken ?Type hydroxyzine HCl 50 mg tablet 50 mg PO BEDTIME 06/10/23 05/05/25 Unknown History Exam Height,Weight and Vital Signs: Height 5 ft 11 in Weight 111.584 kg Assessment and Plan Assessment Anesthesia Assessment: Chart Reviewed Documented by User: Kenzie Bryant MD 05/10/25 12:25 PMFSH Past Medical History Medical History Nephrolithiasis HLD (hyperlipidemia) HTN (hypertension) MDD (major depressive disorder), recurrent episode, moderate CAROLANN (generalized anxiety disorder) BPPV (benign paroxysmal positional vertigo) Family History Family History Father Stroke Hypercholesteremia Mother Diabetes Heart disease Brother Diabetes Family history of problems with anesthesia: No Surgical History Surgical History No pertinent past surgical history History of Problems with Anesthesia: No Social History Social History Housing: House Alcohol intake: former Year quit: 2022 Patient Tobacco Use Status: Former Tobacco user Tobacco use type: Smokeless Tobacco e-Cigarette/Vaping Use: Currently Using Second Hand Smoke Exposure: No Use of substances other than those prescribed or required for medical reasons: No Advance Directives: No Advance Directives Information Provided: Yes service: No Current occupational status: employed Cognitive needs: No Hearing needs: No Vision needs: Yes Meds Allergies Allergy/AdvReac Type Severity Reaction Status Date / Time No Known Allergies (No Known Allergy Verified 04/28/25 14:50 Allergies*) Home Medications ?Medication ?Instructions ?Recorded ?Confirmed ?Last Taken ?Type hydroxyzine HCl 50 mg tablet 50 mg PO BEDTIME 06/10/23 05/05/25 Unknown History Exam Airway Mallampati Class: II TM Dist: >3cm Neck ROM: Full Heart: rrr Lungs: cta Assessment and Plan Assessment Anesthesia Assessment: Anesthesia Plan Discussed Final Anesthetic Review Family History of Problems with Anesthesia: No History of Problems with Anesthesia: No NPO: Yes ASA Class: II Final Preanesthetic Review: No Changes in Pt Med Stat, Meds/Allgs Chart Reviewed and Consent Obtained/Reviewed Patient Risk: Low Procedure Risk: Intermediate Anesthetic Plan Anesthetic Plan: MAC: Disposition: Standard PACU
--- NOTE | ~2025-05-10 | FL_ITS ---
EXAMINATION: FL GUIDANCE ONLY HISTORY: stone left COMPARISON: Relation is made with a CT of the abdomen without contrast dated 01/28/2025. TECHNIQUE: Fluoroscopy time: 10.2 seconds. Cumulative Dose: 4.46 mGy. Images: 4. FINDINGS: Fluoroscopic spot films demonstrate opacification of the distal left ureter. A filling defect is noted, consistent with the calculus noted on CT. The final images demonstrate a nephroureteral stent in place. FL/FL guidance in OR IMPRESSION: Fluoroscopy during procedure. Please see procedure report for additional information. Electronically signed by: Neville Wallace MD 05/10/2025 01:29 PM EDT
[2025-05-10 10:58] VITALS: BMI 33.9
[2025-05-10 11:14] VITALS: BP 142/96; PULSE 65; RESP 16; TEMP 37.1; O2SAT 94
[2025-05-10] MEDS: Lactated Ringers 1,000 ML 100 ML IVCONT (11:15)
--- NOTE | 2025-05-10 12:31 | P.HPSUR_ITS ---
Pre-Procedural Eval Section A - 24 Hr Update-Section A only Date of Service: 05/10/25 The patient is an INPATIENT: No Changes since office visit: No Cold of Flu in the past 2 weeks, No New Medical Problems, No Changes in Medication and No Patient answered all questions The patient has been examined within 24 hours of the surgical procedure. The History & Physical has been completed within 30 days and I have reviewed it.: No Section B - Complete if H&P > 30 days Chief Complaint: Calculus of ureter Details of Present Illness: Left mid ureteric stone Relevant Social History: None Present Medications: see Short Stay Collaborative assessment Medical History: No relevant PMH History of Previous Operations: No relevant previous surgery Allergies: Allergies Allergy/AdvReac Type Severity Reaction Status Date / Time No Known Allergies (No Known Allergy Verified 04/28/25 14:50 Allergies*) Review of Systems Sugical H&P ROS: Negative: Constitution, Cardiovascular, Respiratory, Ne urological, Psychiatric, Hem-Onc, Allergic/Immunologic, Gastrointestinal, Genitourinary, Musculoskeletal, Integumentary, Endocrine and Eyes/Ears/Nose/Throat Exam Surgical H&P Exam: Normal: HEENT, Normal: Heart, Normal: Lungs, Normal: Extremities, Normal: Abdomen, Normal: Skin and Normal: Neurological Plan Diagnosis/Plan: Unchanged (Cystoscopy, left retrograde, left ureteroscopy with laser lithotripsy stent placed) I have reviewed the history and physical and performed a pertinent physical examination on my patient. No changes have occurred unless specified. Time Spent With Patient Time: Total time managing care of this patient today ____ minutes.
--- NOTE | 2025-05-10 13:25 | W.PM.OPN ---
Operative Note Operative Note Date of Service: 05/10/25 Narrative: PreOperative Diagnosis: Distal left ureteric stone Post Operative Diagnosis: Distal left ureteric stone Procedure: - cystoscopy, left retrograde - left dilatation of ureteric orifice under fluoroscopy - left ureteroscopy, laser lithotripsy, stone basketing - left stent placement Surgeon: Dr Cristobal Austin Anesthesia: General Indications for procedure: Distal left ureteric stone with hydronephrosis Procedure: After informed consent was verified the patient was brought to the operating room and placed in a supine position. Anesthesia was administered per protocol. The patient was placed in a modified dorsal lithotomy position and prepped and draped in a sterile fashion. Safety pause time-out and side of surgery were confirmed. Images were available for review. Antibiotic administration confirmed. A 22 Cambodian cystoscope was inserted per urethra. The urethra was without abnormality. The bladder was normal in its entirety. Both ureteric orifices were seen in normal position. The left ureteric orifice was cannulated and a retrograde examination was performed. Filling defects seen in distal left ureter . A Sensor guidewire was placed up to the level of the renal pelvis under fluoroscopy. The rigid cystoscope was removed. A [place] dilator was placed over the Sensor guidewire and used to dilate the ureteric orifice under fluoroscopy. The dilator was removed. The semi rigid ureteral scope was placed alongside the Sensor guidewire. Stone was encountered.. Using a 365 micro holmium laser fiber with settings of 1.2 joules and 6 hertz the stone was broken into small pieces using a combination of hammer and dusting techiques. Stone fragments were removed from the ureter using a 2.4 Cambodian ZeroTip basket basket. Once the fragments were removed a decision was made to place a ureteric stent. Based on the height of the patient a 6 Fr x 28 cm stent was used. The string was removed from the stent prior to placement. The rigid cystoscope was backloaded over the wire and advanced into the bladder. A 6 Cambodian by 28 cm double-J stent was placed into the renal pelvis and bladder under a combination of fluoroscopy and direct visualization. Proximal positioning of the stent was confirmed using fluoroscopy. The bladder was emptied. The patient tolerated the procedure well and was extubated in the operating room. They were transferred in stable condition to the recovery area. Pathology: stones Drains: Double J stent as described above
[2025-05-10 13:28] VITALS: BP 118/84; PULSE 77; RESP 17; TEMP 36.6; O2SAT 92
[2025-05-10 13:33] VITALS: BP 113/80; PULSE 70; RESP 16; O2SAT 93
[2025-05-10 13:38] VITALS: BP 129/83; PULSE 73; RESP 18; O2SAT 94
[2025-05-10 13:43] VITALS: BP 116/82; PULSE 66; RESP 18; O2SAT 94
[2025-05-10 13:58] VITALS: BP 118/76; PULSE 59; RESP 18; TEMP 36.6; O2SAT 97
== END 2025-05-10 14:34 | disposition home or self-care (01) ==
PROVIDERS: PCP Physician Assistant; Visit Provider Urology
PROC: (CPT 52356; principal; 2025-05-10 13:30)
DX: N20.1 Calculus of ureter (principal); I10 Essential (primary) hypertension; E78.5 Hyperlipidemia, unspecified; H81.10 Benign paroxysmal vertigo, unspecified ear; F32.A Depression, unspecified; F41.1 Generalized anxiety disorder; Z79.899 Other long term (current) drug therapy; Z87.891 Personal history of nicotine dependence
CPT/HCPCS: 52356; 82365; 88300; C1758; C1769; C2617; J0131; J1100; J1885; J2003; J2250; J2704; J3010; Q9967

== ENCOUNTER → 2025-05-10 09:39 | Outpatient (BNV) | payer OTHER, SELFPAY | PROVIDERS: PCP Physician Assistant; Visit Provider Urology | DX: N20.1 Calculus of ureter (principal) | CPT/HCPCS: 52356; 74420 ==

== ENCOUNTER 2025-05-14 13:53 | Outpatient (AMB) | payer OTHER, SELFPAY ==
--- NOTE | 2025-05-14 13:54 | MHC.OFFVIS ---
Intake Visit Reasons: Stent Removal Intake Note: Patient is present for Cysto stent removal Urology Medication:Finasteride Antibiotic Allergy:NONE Blood Thinner:NONE Operations Administrator Required: No Accompanied by: Self / Same As Patient Allergies No Known Allergies (No Known Allergies*) Allergy (Verified 05/14/25 13:55) HPI Comments Details: Mitchel is a pleasant male. He is seen for the following urologic conditions - follow-up for kidney stone Here for follow-up Underwent ureteroscopy early this week Not tolerating stent Stent removed today Three-month follow-up imaging Nephrolithiasis Mild left hydroureteronephrosis secondary to left mid ureteral calculus measuring 5-6 mm. Imaging reviewed stone closer to 7 mm Intervention - 04/28 ureteroscopy with laser lithotripsy [facility] Medical History Nephrolithiasis HLD (hyperlipidemia) HTN (hypertension) MDD (major depressive disorder), recurrent episode, moderate CAROLANN (generalized anxiety disorder) BPPV (benign paroxysmal positional vertigo) Surgical History No pertinent past surgical history Family History Father Stroke Hypercholesteremia Mother Diabetes Heart disease Brother Diabetes Social History Housing: House Alcohol intake: former Year quit: 2022 Patient Tobacco Use Status: Former Tobacco user Tobacco use type: Smokeless Tobacco e-Cigarette/Vaping Use: Currently Using Second Hand Smoke Exposure: No service: No Current occupational status: employed Cognitive needs: No Hearing needs: No Vision needs: Yes Review of Systems Const Denies chills and Denies fever(s) Card Reports no additional complaints and Denies syncope Resp Denies cough GI Denies abdominal pain and Denies heartburn Reports as per HPI and Denies change in libido Neuro Denies syncope Psych Denies change in libido Endo Denies change in libido Physical Exam Const General: cooperative, healthy appearing, comfortable and no acute distress Orientation/consciousness: patient oriented x3 HEENT Face and sinus: Yes normal facial exam Mouth: moist mucous membranes Neck Neck: Yes normal visual inspection, Yes full ROM and Yes trachea midline Chest Chest palpation & inspection: normal inspection of the chest Resp Effort & Inspection: normal respiratory effort, able to speak in complete sentences and no respiratory distress GI Inspection: Yes normal to inspection Back/Spine/Pelvis Cervical Spine: normal cervical lordosis Thoracic/Lumbar Spine: thoracic and lumbar spine normal to inspection Skin General skin exam: no rashes or lesions noted Neuro General: patient oriented x3, gait normal, tone normal and moves all extremities Extrem General: Yes normal to inspection and Yes capillary refill normal Office Procedures Cystoscopy Consent Discussed risk and benefit or proposed procedure with the patient. Information consent for procedure given to the patient. Discussed technical aspects, risks, benefits and alternatives in full. Addressed all of the patient's questions and concerns regarding the procedure. The patient demonstrated knowledge and understanding. They wish to proceed with this procedure. Preparation The patient was prepped in the usual manner. A automatic embroidery machine tender was present and in the room. Genitalia was prepped with betadine solution in a sterile manner. Lidocaine Jelly 2% was placed into the urethra and 16Fr flexible Olympus cystoscope was inserted into the meatus after adequate lubrication. Procedure A well lubricated 16 Sammarinese cystoscope was placed No abnormality noted of urethra during placement Indwelling stent seen within bladder emerging from left ureteric orifices The stent was grasped with a 3 prong grasper and removed without difficulty The patient tolerated the procedure well [id number]-[id number] with stent removal DISPOSABLE SCOPE URO-G FLEXIBLE SCOPE Procedure code (CPT) selection complete Office Meds lidocaine HCl 2 % mucosal jelly in applicator Performing Provider: Cristobal Austin MD Performing Location: [facility] [place] [facility] Administered by: Olga Norris RN on 05/14/25 14:15 Dose Route Admin Location Dispensed Lot Number Expiration Date NDC Logistics Officer 10 mL intra-urethral 10 mL nitrofurantoin monohydrate/macrocrystals 100 mg capsule Performing Provider: Cristobal Austin MD Performing Location: [facility] [place] [facility] Administered by: Olga Norris RN on 05/14/25 14:15 Dose Route Admin Location Dispensed Lot Number Expiration Date NDC Logistics Officer 100 mg PO 1 cap Assessment & Plan Assessment & Plan (1) Nephrolithiasis: Code(s): N20.0 - Calculus of kidney Category: Medical Plan Three-month imaging Orders: Orders US renal BI 3 Months N20.0 - Calculus of kidney AMB Cystoscopy Today N20.0 - Calculus of kidney Patient Instructions: This note is constructed using voice recognition software. While every effort has been made to ensure accuracy structural shop helper errors may have been included. Imaging studies, laboratory and physical exam results were discussed and reviewed in detail. No major barriers to patient understanding were identified. An opportunity to ask questions regarding the treatment plan was provided. All questions were answered. The patient expressed understanding and agreement with the above treatment plan. The patient is aware they should contact our office by phone for worsening of their current condition or the appearance of new urologic symptoms. Compliance is encouraged with any medications and followup testing that is ordered. It is a privilege to participate in the urologic care of your patient. If you have any questions or concerns regarding treatment for the above conditions, or other urologic issues, please do not hesitate to contact me. The office telephone contact is [phone]. Sincerely, Dr Cristobal Austin MD, [facility] - Urology Compassionate Specialist Care for the Genitourinary System Coding Level of Care Code Est Pt Level 3 (00270) Diagnoses Nephrolithiasis N20.0 CPT Codes Cystoscopy - CPT: 55155-Cmxccrhwek with stent removal ([id number])
== END 2025-05-14 14:37 | disposition home or self-care (01) ==
LOC: HO.HUSH 13:54
PROVIDERS: PCP Physician Assistant; Visit Provider Urology
DX: N20.0 Calculus of kidney (principal); Z96.0 Presence of urogenital implants; Z13.9 Encounter for screening, unspecified
CPT/HCPCS: 52310

== ENCOUNTER → 2025-05-14 13:53 | Outpatient (BNVA) | payer OTHER, SELFPAY | PROVIDERS: PCP Physician Assistant; Visit Provider Urology | DX: N20.0 Calculus of kidney (principal) | CPT/HCPCS: 52310; 81003 ==

== ENCOUNTER 2025-07-06 14:41 | Outpatient (REF) | payer OTHER, SELFPAY ==
--- OUTSIDE RECORDS SUMMARY | 2025-07-06 15:56 | XMS_ITS | Clinical Summary ---
Author Organization [facility] Address [address] [place], [place] [id number] Phone Care Team Providers Care Survey Research Associate Name Role Phone Ant Figueroa Primary Care Provider + Allergies No known active allergies Medications tamsulosin (FLOMAX) 0.4 mg Cap Take 1 capsule (0.4 mg total) by mouth daily for 14 days. 14 capsule 08/24/2024 Active Social History Tobacco Use Types Packs/Day Years Used Date Smoking Tobacco: Never Passive Smoke Exposure: Never Smokeless Tobacco: Never Comments:vaping Education Answer Date Recorded Are you interested in more education? Not on ludwig e 08/24/2024 Are you concerned about learning? Not on file 08/24/2024 No 08/24/2024 No 08/24/2024 Digital Access Answer Date Recorded No 08/24/2024 No 08/24/2024 Reliable internet access at home? Not on file 08/24/2024 Device with a working camera? Not on file Intimate Partner Violence Answer Date R ecorded Are you denied basic needs s uch as food, clothing, or medical care? No 08/24/2024 In the past 12 months have y ou been in a relationship with a person who hurts, threatens, or tries to control you? No 08/24/2024 Are you denied basic needs s uch as food, clothing, or medical care? No 08/24/2024 In the past 12 months have y ou been in a relationship with a person who hurts, threatens, or tries to control you? No 08/24/2024 Sex and Gender Information Value Date Recorded Sex Assigned at Male 08/24/2024 12:59 PM EDT Legal Sex Male 9:47 AM EDT Gender Identity Male 08/24/2024 12:59 PM EDT Sexual Orientation Not on file Last Filed Vital Signs Vital Sign Reading Time Taken Comments Blood Pressure 173/115 08/24/2024 9:20 PM EDT Pulse 61 08/24/2024 9:20 PM EDT Temperature 37 C (98.6 F) 08/24/2024 9:20 PM EDT Respiratory Rate 20 08/24/2024 9:20 PM EDT Oxygen Saturation 99% 08/24/2024 9:20 PM EDT Inhaled Oxygen Concentration - - Weight 108.9 kg (240 lb) 08/24/2024 1:00 PM EDT Height 180.3 cm (5' 11 ) 08/24/2024 1:00 PM EDT Body Mass Index 33.47 08/24/2024 1:00 PM EDT Plan of Treatment Health Maintenance Due Date Last Done Comments Adult Td,Tdap Booster 1982 LIPID PANEL 1982 DEPRESSION SCREENING 1994 HEPATITIS C SCREENING 2000 HIV ONE-TIME SCREENING (18-6 5 YEARS) 2000 SMOKING STATUS SCREENING (On ce After 26 Yrs) 2008 COVID-19 VACCINE (2023-2 5 season) 2024 SCREENING FOR DIABETES 08/24/2027 08/24/2024 HEPATITIS A VACCINES Aged Out No long er eligible based on patient's age to complete this topic HIB VACCINES Aged Out No longer eligi ble based on patient's age to complete this topic MENINGOCOCCAL VACCINES (ACWY) Aged Out No longer eligible based on patient's age to complete this topic MENINGOCOCCAL VACCINES (B) Aged Out N o longer eligible based on patient's age to complete this topic PNEUMOCOCCAL VACCINES (0-49 years) Aged Out No longer eligible based on patient's age to complete this topic Medical Devices Not on file Insurance HEALTH SAFETY NET PARTIAL HEALTH SAFETY NET PARTIAL HEALTH SAFETY NET PARTIAL HEALTH SAFETY NET PARTIAL HEALTH SAFETY NET PARTIAL NET PARTIAL Care Teams Survey Research Associate Relationship Specialty Start Date End Date Ant Figueroa PA [address] [place] [phone] PCP - General Physician Manager Of Administration 08/24/24 Additional Source Comments The information contained in this document represents components of the legal health record. It is not the complete legal health record.[facility]
--- OUTSIDE RECORDS SUMMARY | 2025-07-06 15:57 | XMS_ITS | Encounter Summary ---
Author Organization [facility] Address [address] [facility] [address] [place] [phone] Phone Care Team Providers Care Ex Assistant/Program Director Name Role Phone Ant Figueroa Primary Care Provider + Encounter Details Date Type Department Care Team (Late st Contact Info) Description 08/24/2024 Procedure Pass [facility], Ct Scan - [address] [address] Social History Tobacco Use Types Packs/Day Years [...] PM EDT Sexual Orientation Not on file documented as of this encounter Functional Status * Calculated C-SSRS Risk Score (Lifetime/Recent) Answer Date of Assessment Author No Risk Indicated 08/24/2024 12:59 PM EDT Elvia Horta, ANA * [place] Suicide Severity Rating Scale (Screener/Recent Self-Report) Question Answer Date of Assessment Author 1. Wish to be (Past 1 Month) No 024 12:59 PM EDT Elvia Carrasco RN 2. Non-Specific Active Suici madelin Thoughts (Past 1 Month) No 08/24/2024 12:59 PM EDT Dane Carrasco RN 6. Suicidal Behavior (Lifetime) No 12:59 PM EDT Elvia Carrasco RN documented as of this encounter Plan of Treatment Not on file documented as of this encounter Visit Diagnoses Not on filedocumented in this encounter Care Teams Ex Assistant/Program Director Relationship Specialty Start Date End Date Ant Figueroa PA [address] [place] [phone] PCP - General Physician [facility] 08/24/24 documented as of this encounter Additional Source Comments The information contained in this document represents components of the legal health record. It is not the complete legal health record.[facility]
[2025-07-08 21:19] LABS: TS Negative Control Passed; TS Panel A 0; TS Panel B 0; TS Positive Control Passed; TSpotTB Negative (Negative)
== END 2025-07-06 14:42 | disposition home or self-care (01) ==
LOC: HO.LAB 14:41
PROVIDERS: PCP Physician Assistant; Visit Provider Physician Assistant
DX: Z11.1 Encounter for screening for respiratory tuberculosis (principal)
CPT/HCPCS: 36415; 86481

== ENCOUNTER 2025-07-22 14:42 | Outpatient (AMB) | payer OTHER, SELFPAY ==
[2025-07-22 14:58] VITALS: BP 120/80; PULSE 87; TEMP 36.3; O2SAT 97; BMI 34.2
--- NOTE | 2025-07-22 14:58 | A.OFFPC_ITS ---
Vital Signs 07/22/25 14:58 Height 5 ft 11 in Weight 245 lb 2 oz BMI 34.2 BP 120/80 Blood Pressure Location Lt brachial Position Sitting Pulse 87 Pulse Source Pulse Oximeter Temp 97.3 F Temp Source Temporal Artery Scan Pulse Oximetry (%) 97 Oxygen Delivery Method Room Air Intake Visit Reasons: f/u HTN Intake Note: Patient is here to follow up on HTN. Virtualization Consultant Required: No Research Center Partner: Not Required per policy Accompanied by: Self / Same As Patient Allergies No Known Allergies (No Known Allergies*) Allergy (Verified 07/22/25 15:18) Medication List - Last Reconciled 07/22/25 by Ant Figueroa PA-C amlodipine 10 mg PO DAILY hydroxyzine HCl 50 mg PO BEDTIME lisinopril-hydrochlorothiazide 10-12.5 mg 1 tab PO DAILY 90 days miscellaneous medical supply (Blood Pressure Cuff) As directed naproxen 500 mg PO BID PRN 7 days sertraline 50 mg PO DAILY 90 days simvastatin 40 mg PO DAILY 90 days tamsulosin 0.4 mg PO BEDTIME 14 days tizanidine 2 mg PO TID PRN 30 days trazodone 50 mg PO DAILY Tobacco use date assessed: 07/22/25 Dental Screening Dental Screen Date: 01/07/25 HPI f/u HTN HPI Details Patient is a 45-year-old male here today for follow-up visit. She has a past medical history significant for obesity, hypertension, hyperlipidemia, Nephrolithiasis Hypertension: Pressure much improved today in office, he reports taking all of his antihypertensive medications consistently. Nephrolithiasis: Patient has followed up with the Urology and has had his kidney stone removed along with his urinary stent. 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 He does have thoracic spine pain that is severe at times and has upcoming appointment with pain management for pain reduction modality evaluation. [facility] Medical History Nephrolithiasis HLD (hyperlipidemia) HTN (hypertension) MDD (major depressive disorder), recurrent episode, moderate CAROLANN (generalized anxiety disorder) BPPV (benign paroxysmal positional vertigo) Surgical History History of removal of calculus of renal pelvis through percutaneous nephrostomy No pertinent past surgical history Family History Father Stroke Hypercholesteremia Mother Diabetes Heart disease Brother Diabetes Social History Housing: House Alcohol intake: former Year quit: 2022 Patient Tobacco Use Status: Former Tobacco user Tobacco use type: Smokeless Tobacco e-Cigarette/Vaping Use: Former Use Second Hand Smoke Exposure: Yes service: No Current occupational status: employed Cognitive needs: No Hearing needs: No Vision needs: Yes Questionnaire Thrive Questionnaire Date Thrive assessed: 01/07/25 I am a: Patient What is your living situation today?: I have a steady place to live Within the past 12 months, did the food you bought not last and you didn't have the money to get more?: Often true Within the past 12 months, did you worry whether your food would run out before you got money to buy more?: Never true Do you have trouble paying for medicines?: No Do you have trouble getting transportation to medical appointments?: No Do you have trouble paying your heating and electricity bill?: No Do you have trouble taking care of your child, family member or friend?: No Do you have trouble with day-to-day activities such as bathing, preparing meals, shopping, managing finances, etc.?: No Are you currently unemployed and looking for a job?: No Are you interested in more education?: No Please select the resources that you would like help with: None Currently or been in a relationship where the following occur: No concerns reported THRIVE Score: 1 CAROLANN-7 AMB Questionnaire CAROLANN-7 Date CAROLANN - 7 assessed: 01/07/25 Source: Developed by Drs. Neville Jones, Kim Alvarado, Daniel Bills and colleagues, with an educational wolf from [employer]. Review of Systems Const Denies headache(s) Eyes Denies loss of vision ENT Denies vertigo, Denies dizziness, Denies headache(s) and Denies sore throat Card Denies chest pain, Denies leg edema and Denies lightheadedness Resp Denies cough, Denies hemoptysis and Denies wheezing GI Denies abdominal pain, Denies melena, Denies constipation, Denies diarrhea and Denies vomiting Denies dysuria, Denies urinary frequency and Denies urinary urgency Musc Denies arthralgias, Denies joint swelling, Denies numbness and Denies tingling Neuro Denies Abnormal speech present, Denies behavioral changes, Denies vertigo, Denies dizziness, Denies headache(s), Denies loss of vision, Denies memory loss, Denies numbness and Denies tingling Psych Denies anxiety, Denies behavioral changes, Denies depression, Denies memory loss and Denies panic attacks Raman/Lymph Denies easy bleeding and Denies easy bruising Aller/Immun Denies wheezing Physical exam (Primary Care) Vital Signs: Last Vital Signs Temp 97.3 F 07/22/25 14:58 Pulse 87 07/22/25 14:58 BP 120/80 07/22/25 14:58 Pulse Ox 97 07/22/25 14:58 Oxygen Delivery Method Room Air 07/22/25 14:58 BMI result Body Mass Index 34.2 Tobacco/Smoking Status: Tobacco use Status Tobacco use date assessed 07/22/25 07/22/25 15:16 Patient Tobacco Use Status Former Tobacco user 07/22/25 15:16 Tobacco use type Smokeless Tobacco 07/22/25 15:16 e-Cigarette/Vaping Use Former Use 07/22/25 15:16 Thrive Assessment: Date of Thrive Assessment Date Thrive assessed 01/07/25 07/22/25 15:16 Currently or been in a relationship where the following occur: No concerns reported Const General: healthy appearing, no acute distress, alert and awake Nutritional Appearance: well nourished Orientation/consciousness: oriented to person, oriented to place and oriented to time [facility] Ears: TM's normal bilaterally General nose exam: Normal nasal mucous membranes and turbinates present Eyes Conjunctivae: conjunctivae normal Sclerae: sclerae normal Pupils: Equal, round and reactive pupils present Neck Neck: Yes no lymphadenopathy and Yes no JVD Thyroid: Thyroid normal Carotids: no bruits Resp Effort & Inspection: normal respiratory effort and not tachypneic Auscultation: no crackles, no rales, no rhonchi and no wheezes Cardio Rate: regular rate Rhythm: regular rhythm Heart sounds: no murmurs and normal S1 and S2 GI Palpation (GI): Soft to palpation, nontender, no hepatomegaly and no splenomegaly Auscultation: normal bowel sounds Skin General skin exam: no rashes or lesions noted and dry skin Neuro General: oriented to person, oriented to place and oriented to time Cranial nerves: Yes Equal, round and reactive pupils present Speech: No Abnormal speech present Gait exam (Neuro): Normal gait present Motor exam (neuro): no tremor noted Extrem Right upper extremity: full ROM Left upper extremity: full ROM Right lower extremity: full ROM; no edema Left lower extremity: full ROM; no edema Psych Mental Status: mental status grossly normal Speech and movement: Normal speech and movement present Affect: normal affect Attitude: cooperative Thought process: Normal thought process present Coding Level of Care Code Est Pt Level 4 (05855) Diagnoses Nephrolithiasis N20.0 Primary hypertension I10 Hypertension type: primary hypertension Class 1 obesity E66.811 Assessment & Plan Assessment & Plan (1) Nephrolithiasis: Code(s): N20.0 - Calculus of kidney Category: Medical Plan: The patient underwent successful removal of a kidney stone, but experienced complications due to a ureteral stent left in place, causing significant discomfort and urinary issues. The stent was removed after an emergency department visit and consultation with a urologist, leading to relief of symptoms. (2) HTN (hypertension): Code(s): I10 - Essential (primary) hypertension Category: Medical Qualifiers: Hypertension type: primary hypertension Qualified Code(s): I10 - Essential (primary) hypertension Plan: Patient's blood pressure acceptable today in office. He is consistent with using all of his antihypertensive medication. Goal blood pressures to remain below 140/90 (3) Class 1 obesity: Code(s): E66.811 - Obesity, class 1 Category: Medical Plan: Patient does understand his BMI is over 30 will work on being more physically active and adapt to better eating habits to reduce his weight. Orders: Orders Complete Blood Count no Diff Today I10 - Essential (primary) hypertension Lipid Panel Today E78.2 - Mixed hyperlipidemia Microalbumin, Random (w Creat) Today I10 - Essential (primary) hypertension Comprehensive [place]. Panel Fast Today I10 - Essential (primary) hypertension Medications: Refilled sertraline 50 mg PO DAILY 90 tabs 1RF 90 days F41.1 - Generalized anxiety disorder trazodone 50 mg PO DAILY 90 tabs 1RF F33.1 - Major depressive disorder, recurrent, moderate amlodipine 10 mg PO DAILY 90 tabs 1RF I10 - Essential (primary) hypertension lisinopril-hydrochlorothiazide 10-12.5 mg 1 tab PO DAILY 90 tabs 1RF 90 days I10 - Essential (primary) hypertension simvastatin 40 mg PO DAILY 90 tabs 1RF 90 days E78.2 - Mixed hyperlipidemia tamsulosin 0.4 mg PO BEDTIME 14 caps 0RF 14 days
--- OUTSIDE RECORDS SUMMARY | 2025-07-22 16:25 | XMS_ITS | Clinical Summary ---
Author Organization [facility] Address [address] [place], [place] [id number] Phone Care Team Providers Care Scaler Name Role Phone Ant Figueroa Primary Care [...] SCREENING (On ce After 26 Yrs) 2008 INFLUENZA VACCINE (#1) 2025 COVID-19 VACCINE ( - 2023-2 5 season) 2025 SCREENING FOR DIABETES 08/24/2027 08/24/2024 HEPATITIS A [...] SAFETY NET PARTIAL HEALTH SAFETY NET PARTIAL Care Teams Scaler Relationship Specialty Start Date End Date Ant Figueroa PA [address] [place] [phone] PCP - General Physician L Tacker 08/24/24 Additional Source Comments The information contained in this document represents components of the legal health record. It is not the complete legal health record.[facility]
--- OUTSIDE RECORDS SUMMARY | 2025-07-22 16:25 | XMS_ITS | Encounter Summary ---
Author Organization [facility] Address [address] [facility] [address] [place] [phone] Phone Care Team Providers Care Executive Candidate Developer Name Role Phone Ant Figueroa Primary Care Provider + Encounter Details Date Type Department Care Team (Late st Contact Info) Description 08/24/2024 Procedure Pass [facility], Ct Scan - [address] [address] Social History Tobacco Use Types Packs/Day Years [...] 12:59 PM EDT Elvia Horta, ANA * [place] Suicide Severity Rating Scale (Screener/Recent Self-Report) Question [...] on filedocumented in this encounter Care Teams Executive Candidate Developer Relationship Specialty Start Date End Date Ant Figueroa PA [address] [place] [phone] PCP - General Physician Photographic Specialist 08/24/24 documented as of this encounter Additional Source Comments The information contained in this document represents components of the legal health record. It is not the complete legal health record.[facility]
== END 2025-07-22 15:33 | disposition home or self-care (01) ==
LOC: HO.HMCH 14:43
PROVIDERS: PCP Physician Assistant; Visit Provider Physician Assistant
DX: I10 Essential (primary) hypertension (principal); N20.0 Calculus of kidney; E66.811 Obesity, class 1; Z68.34 Body mass index [BMI] 34.0-34.9, adult

== ENCOUNTER → 2025-07-22 14:42 | Outpatient (BNVA) | payer OTHER, SELFPAY | PROVIDERS: PCP Physician Assistant; Visit Provider Physician Assistant | DX: I10 Essential (primary) hypertension (principal); N20.0 Calculus of kidney; M54.6 Pain in thoracic spine; E78.2 Mixed hyperlipidemia; E66.811 Obesity, class 1; Z68.34 Body mass index [BMI] 34.0-34.9, adult | CPT/HCPCS: 99212 ==

== ENCOUNTER 2025-07-30 14:57 | Outpatient (REF) | payer OTHER, SELFPAY ==
--- NOTE | ~2025-07-30 | US_ITS ---
EXAMINATION: US RETROPERITONEAL LIMITED (RENAL ONLY) CLINICAL INFORMATION: Calculus of kidney. COMPARISON: 10/30/2021 abdomen US. TECHNIQUE: Real-time imaging of the kidneys. FINDINGS: RIGHT KIDNEY: 12.0 x 6.8 x 6.3 cm (SAG x AP x TRV). The kidney is normal in size, contour, and echogenicity. Renal cortical thickness is normal. No calculi or focal parenchymal lesions. No hydronephrosis. LEFT KIDNEY: 12.0 x 6.9 x 5.2 cm (SAG x AP x TRV). The kidney is normal in size, contour, and echogenicity. Renal cortical thickness is normal. No calculi or focal parenchymal lesions. No hydronephrosis. US/US renal BI IMPRESSION: Normal renal ultrasound.. Electronically signed by: Henrry Leon MD 07/30/2025 03:23 PM EDT
--- OUTSIDE RECORDS SUMMARY | 2025-07-30 15:39 | XMS_ITS | Clinical Summary ---
Author Organization [facility] Address [address] [place], [place] [id number] Phone Care Team Providers Care Envelope Fold Operator Name Role Phone Ant Figueroa Primary Care [...] PARTIAL HEALTH SAFETY NET PARTIAL Care Teams Envelope Fold Operator Relationship Specialty Start Date End Date Ant Figueroa PA [address] [place] [phone] PCP - General Physician Net Developer With [employer] 08/24/24 Additional Source Comments The information contained in this document represents components of the legal health record. It is not the complete legal health record.[facility]
--- OUTSIDE RECORDS SUMMARY | 2025-07-30 15:39 | XMS_ITS | Encounter Summary ---
Author Organization [facility] Address [address] [facility] [address] [place] [phone] Phone Care Team Providers Care Tool Lathe Operator Name Role Phone Ant Figueroa Primary Care Provider + Encounter Details Date Type Department Care Team (Late st Contact Info) Description 08/24/2024 Procedure Pass [facility], Ct Scan - [address] [address] Social History Tobacco Use Types Packs/Day Years [...] 12:59 PM EDT Elvia Horta, ANA * [place] Suicide Severity Rating Scale (Screener/Recent Self-Report) Question [...] on filedocumented in this encounter Care Teams Tool Lathe Operator Relationship Specialty Start Date End Date Ant Figueroa PA [address] [place] [phone] PCP - General Physician High Tension Tester 08/24/24 documented as of this encounter Additional Source Comments The information contained in this document represents components of the legal health record. It is not the complete legal health record.[facility]
== END 2025-07-30 14:58 | disposition home or self-care (01) ==
LOC: HO.US 14:57
PROVIDERS: PCP Physician Assistant; Visit Provider Urology
DX: N20.0 Calculus of kidney (principal)
CPT/HCPCS: 76775

== ENCOUNTER → 2025-07-30 14:59 | Outpatient (BNV) | payer OTHER, SELFPAY | PROVIDERS: PCP Physician Assistant; Visit Provider Radiology Diagnostic Radiology | DX: N20.0 Calculus of kidney (principal) | CPT/HCPCS: 76775 ==

== ENCOUNTER 2025-08-13 15:16 | Outpatient (AMB) | payer OTHER, SELFPAY ==
--- NOTE | 2025-08-13 15:17 | A.OFFVIS_ITS ---
Intake Visit Reasons: 3m/US Intake Note: patient presents today for: telehealth 3mo follow up urology medications: tamsulosin blood thinners: none US done: 07/30/25 Drafter (Cad) Electronic Required: No Accompanied by: Self / Same As Patient Allergies No Known Allergies (No Known Allergies*) Allergy (Verified 08/13/25 15:18) HPI Comments Details: Mitchel is a pleasant male. He is seen for the following urologic conditions - follow-up for kidney stone Three-month follow-up imaging Nephrolithiasis Mild left hydroureteronephrosis secondary to left mid ureteral calculus measuring 5-6 mm. Imaging reviewed stone closer to 7 mm Intervention - 04/28 ureteroscopy with laser lithotripsy Imaging - 07/29 renal ultrasound no stone seen Composition - 05/28 mixed calcium oxalate PFSH Medical History Nephrolithiasis HLD (hyperlipidemia) HTN (hypertension) MDD (major depressive disorder), recurrent episode, moderate CAROLANN (generalized anxiety disorder) BPPV (benign paroxysmal positional vertigo) Surgical History History of removal of calculus of renal pelvis through percutaneous nephrostomy No pertinent past surgical history Family History Father Stroke Hypercholesteremia Mother Diabetes Heart disease Brother Diabetes Social History Housing: House Alcohol intake: former Year quit: 2022 Patient Tobacco Use Status: Former Tobacco user Tobacco use type: Smokeless Tobacco e-Cigarette/Vaping Use: Former Use Second Hand Smoke Exposure: Yes service: No Current occupational status: employed Cognitive needs: No Hearing needs: No Vision needs: Yes Review of Systems Const All systems reviewed & are unremarkable except as noted in HPI and below Reports no additional complaints Resp Reports no additional complaints GI Reports no additional complaints Reports as per HPI Musc Reports no additional complaints Physical Exam Telemedicine evaluation Appropriate responses Regular breathing rate and rhythm HEENT Head: Yes normal to inspection Ears: hearing grossly normal bilaterally Eyes General: appearance normal, both eyes and all related structures Neck Neck: Yes normal visual inspection Chest Chest palpation & inspection: normal inspection of the chest Resp Effort & Inspection: normal respiratory effort and able to speak in complete sentences Telehealth Telehealth Telehealth Platform: Telephone Location of provider rendering services: practice address Location of patient: address on file Patient Identification confirmed using: Name, : Yes Telehealth method: video Patient verbally consented to treatment: Yes Patient verbally consented to billing insurance company: Yes Patient informed of any privacy concerns related to visit: Yes Assessment & Plan Assessment & Plan (1) Nephrolithiasis: Code(s): N20.0 - Calculus of kidney Category: Medical Plan Twelve month follow-up imaging Patient Instructions: This note is constructed using voice recognition software. While every effort has been made to ensure accuracy planning assistant errors may have been included. Imaging studies, laboratory and physical exam results were discussed and reviewed in detail. No major barriers to patient understanding were identified. An opportunity to ask questions regarding the treatment plan was provided. All questions were answered. The patient expressed understanding and agreement with the above treatment plan. The patient is aware they should contact our office by phone for worsening of their current condition or the appearance of new urologic symptoms. Compliance is encouraged with any medications and followup testing that is ordered. It is a privilege to participate in the urologic care of your patient. If you have any questions or concerns regarding treatment for the above conditions, or other urologic issues, please do not hesitate to contact me. The office telephone contact is [phone]. Sincerely, Dr Cristobal Austin MD, [facility] - Urology Compassionate Specialist Care for the Genitourinary System Coding Level of Care Code Tele Est Pt Level 3 (74636) Add On Problem Visit Only Diagnoses Nephrolithiasis N20.0
== END 2025-08-13 16:00 | disposition home or self-care (01) ==
LOC: HO.HUSH 15:16
PROVIDERS: PCP Physician Assistant; Visit Provider Urology
DX: N20.0 Calculus of kidney (principal)
CPT/HCPCS: 99213